=== PATIENT | male | born 1945 | race Caucasian/White ===

== ENCOUNTER → 2017-06-06 06:24 | Outpatient (CLI) | payer MEDICARE, OTHER, SELFPAY ==
[2017-06-06 07:36] LABS: Anion Gap 5 (5-15); BUN 12 mg/dL (7-18); BUN/Creat Ratio 12.3 RATIO (10-20); Calcium,Total 8.7 mg/dL (8.5-10.1); Chloride 106 mmol/L (98-107); Cholesterol 163 mg/dL (200); Creatinine, Serum 0.98 mg/dL (0.70-1.30); EST Glomerular Filtration Rate 81 mL/min (>60); Est Glom Filt Rate - Afr Amer 97 mL/min (>60); Glucose 97 mg/dL (74-106); High Density Lipoprotein 64 mg/dL; PSA,Total - Annual Screen 1.28 ng/mL (0.00-4.00); Potassium 4.6 mmol/L (3.5-5.1); Sodium Level 140 mmol/L (136-145); Triglycerides 80 mg/dL; Very Low Density Lipoprotein 16 mg/dL (5-40)
== END ==
PROVIDERS: Family Provider Family Medicine; PCP Family Medicine; Visit Provider Family Medicine
DX: Z12.5 Encounter for screening for malignant neoplasm of prostate (principal); I10 Essential (primary) hypertension; E78.00 Pure hypercholesterolemia, unspecified
CPT/HCPCS: 36415; 80048; 80061; 84153; G0103

== ENCOUNTER 2017-10-02 14:06 | Day surgery (SDC) | payer MEDICARE, OTHER, SELFPAY ==
[2017-10-02] VITALS (12 sets, daily range): BP systolic 121–168; BP diastolic 72–98; PULSE 73–101; RESP 16–18; TEMP 36.8–37.8; O2SAT 94–97; BMI 36.5
--- NOTE | 2017-10-02 15:06 | EKG12_ITS ---
Test Reason : CP Blood Pressure : / mmHG Vent. Rate : 076 BPM Atrial Rate : 076 BPM P-R Int : 196 ms QRS Dur : 096 ms QT Int : 366 ms P-R-T Axes : 013 -16 -02 degrees QTc Int : 411 ms Normal sinus rhythm Normal ECG Confirmed by SYEDA HALL, MADY ([id number]), subeditor CHATA ROJO ([id number]) on 10/05/2017 1:14:03 PM Referred By: BETSEY Confirmed By:MADY LANDA MD
--- NOTE | 2017-10-02 15:07 | CT_ITS ---
STUDY: CT ABDOMEN AND PELVIS WITH CONTRAST REASON FOR EXAM: Male, 71 years old. Right sided abdominal pain beginning yesterday. Nausea and vomiting. Elevated white blood count. RADIATION DOSAGE (If Supplied By Facility): CTDIvol = ( 18.74 ) mGy, DLP = ( 1362.81 ) mGycm TECHNIQUE: Transaxial images were obtained from the dome of the diaphragm to the symphysis pubis with oral contrast. 100mL ml of Isovue 300 contrast was administered. Sagittal and coronal images were reconstructed. Individualized dose optimization techniques were used for this CT. COMPARISON: None. FINDINGS: The visualized lung bases are unremarkable. The visualized portions of the heart are within normal limits. Normal liver. Normal gallbladder and extrahepatic biliary system. Normal spleen. Normal pancreas. Normal bilateral adrenal glands. The right kidney is of normal size and cortical thickness. There is stranding of the perinephric fat. There are multiple parapelvic and cortical renal cyst. No renal calculi or hydronephrosis is seen. There is no evidence of ureteral dilatation. There is a approximate 1 to 2 mm calcification in the distal ureter best seen on image 110 of series 2. The left kidney is of normal size and cortical thickness. There is stranding of the perinephric fat. There are parapelvic and cortical renal cysts. There is no hydronephrosis. Normal left ureter. Normal visualized stomach. Normal small intestine. Normal colon. The appendix is distended and fluid-filled. There are several appendicoliths. The base of the measures 1.5 cm in diameter. There is diffuse stranding of the periappendiceal fat. The tip of the appendix is normal in diameter. There is no fluid collections or periappendiceal abscess. Normal abdominal aorta. Normal inferior vena cava. Normal retroperitoneum. Normal urinary bladder. The prostate is mildly enlarged. Multiple phleboliths are seen in the pelvis. There is no pelvic lymphadenopathy. No free air or free fluid seen within the peritoneal cavity. Normal abdominal wall. There are diffuse degenerative changes of the visualized lumbar spine. There is minimal anterolisthesis of L5 on S1 without pars defects. CT/Abdomen/Pelvis WITH Contrast IMPRESSION: 1. Appendicitis without obvious complication. 2. Nonobstructing right distal ureteral calculus. 3. Bilateral cortical and parapelvic renal cysts. 4. Enlarged prostate. 5. Degenerative changes of the lumbar spine. Triny Crum M.D., was advised of these findings via direct telephone communication at 1647 hours EST on October 02, 2017. Electronically Signed: Ricky Harden DO at 16:47 EDT Tel [phone], Service support ,
--- NOTE | 2017-10-02 15:09 | ED.VISSUMM ---
- ER Visit Summary Date of Service: 10/02/17 Chief Complaint: Abdominal pain, nausea, vomiting History of Present Illness: The patient is a 71 M reports onset of periumbilical abdominal pain last night. Today it is down the right lower quadrant. He has had subjective fever at home but did not measure his temperature. He vomited twice today. He said very poor appetite. Denies dysuria or diarrhea. He denies any prior abdominal surgeries. History significant for hypertension, high cholesterol, kidney stone, atrial fibrillation/A flutter. Patient is not on anticoagulants. Physical Examination: Vital signs significant for temperature 100.0. Patient is lying in bed no acute distress. He is nontoxic appearing. Head neck examination normal. Heart is regular rate and rhythm. Lung sounds are clear. Abdomen is soft with tenderness in the right lower quadrant. There is no guarding or rebound. He has active bowel sounds throughout. Test Results: CBC reveals a white count 11.5 with 84% neutrophils. Hemoglobin is concentrated at 17. Chemistry studies are normal. EKG is sinus at 76 with no sign of acute ischemia. CT abdomen and pelvis with contrast was obtained. Formal report from radiologist has not yet returned but images do reveal acute appendicitis. Emergency Department Course and Treatment: Patient denied need for pain or nausea medication. Following CT imaging test results were discussed with him. A dose of Zosyn has been ordered. I spoke with Dr. Thomas, on-call for surgery. He will be in to see the patient for surgery. Treatment Plan: [] Disposition: Admit Impression: Acute appendicitis Addendum: After speaking with the radiologist, there is also note of a 1-2 mm kidney stone in the distal right ureter. Patient has been updated with these findings and will be discussed with the surgeon as well. This note was generated with [employer] dictation software. It may contain incorrect words, spelling, and punctuation that were not noted in review of the chart prior to signing ED Disposition - Plan for ED Patient: Chief Complaint: Abd Pain
[2017-10-02] MEDS: 0.9% Normal Saline 1,000 ML 150 ML IV (15:14)
[2017-10-02 15:16] LABS: Absolute Lymphocyte Count 1.05 X10^3/ul (0.83-4.51); Absolute Neutrophil Count 9.7 X10^3/uL (2.0-7.7); Basophil# 0.03 X10^3/uL; Basophil% 0.3 % (0-1); Eosinophil# 0.02 X10^3/uL; Eosinophils% 0.2 % (0-5); Hematocrit 48.3 % (40-54); Lymphocyte # 1.05 X10^3/ul (4.0); Lymphocyte % 9.1 % (19-41); Mean Corp Hgb Conc 35.2 g/gl (32-36); Mean Corpuscular Hgb 32.4 pg (27.0-32.0); Mean Corpuscular Volume 92.2 fL (80-94); Mean Platelet Vol. 9.8 fl (6.2-12.0); Monocyte# 0.67 X10^3/uL; Monocyte% 5.8 % (0-10); Neutrophil # 9.73 X10^3/uL (2.7-7.7); Neutrophil % 84.4 % (47-70); POSITIVE COUNT NO; POSITIVE DIFFERENTIAL NO; POSITIVE MORPHOLOGY NO; Platelet Count 142 K/mm3 (150-450); RBC Distribution Width SD 43.5 fl (35.1-43.9); Red Blood Count 5.24 M/mm3 (4.6-6.2); White Blood Count 11.5 K/mm3 (4.4-11.0)
[2017-10-02 15:27] LABS: Anion Gap 5 (5-15); BUN 13 mg/dL (7-18); BUN/Creat Ratio 10.9 RATIO (10-20); Calcium,Total 9.2 mg/dL (8.5-10.1); Chloride 105 mmol/L (98-107); Creatinine, Serum 1.19 mg/dL (0.70-1.30); EST Glomerular Filtration Rate 64 mL/min (>60); Est Glom Filt Rate - Afr Amer 77 mL/min (>60); Estimated Creatinine Clearance 55.08 ml/min; Glucose 114 mg/dL (74-106); Sodium Level 138 mmol/L (136-145)
--- NOTE | 2017-10-02 17:32 | PCM.CONS.GEN ---
Problem List (1) Acute appendicitis with localized peritonitis Status: Acute Reason for Consult Date of Consultation: 10/02/17 History of Present Illness: The patient is a 71 year old M who presented to the emergency department with right lower quadrant abdominal pain. His pain started yesterday periumbilical in nature now radiating into the right lower quadrant. He has vomited ?2 he has had a subjective fever he has had no dysuria no diarrhea CAT scan was obtained which showed acute appendicitis with a possible small kidney stone in the right ureter as well. He is not complaining of any back pain at this time. Past medical history significant for A. fib and a flutter hypertension hypercholesterolemia and kidney stones in the past he has had no prior abdominal surgeries and he is not on any anticoagulation. Past Medical History Past Medical History (Chronic Problems): Chronic Problems HTN (hypertension) (Chronic) Hyperlipidemia (Chronic) Atrial flutter (Chronic) A-fib (Chronic) Allergies flecainide Adverse Reaction (Verified 10/02/17 14:09) Other IRREG HR ramipril [From Altace] Adverse Reaction (Verified 10/02/17 14:09) Other COUGH SARDIDOL Adverse Reaction (Uncoded 10/02/17 14:09) Other Home Medications: Ambulatory Orders Medication Instructions Recorded Atorvastatin Calcium [Lipitor] 20 mg PO QHS 08/11/14 Diltiazem HCl [Diltiazem 24Hr ER] 180 mg PO DAILY 08/11/14 Aspirin E.C. [Ecotrin] 81 mg PO DAILY 10/02/17 Losartan Potassium [Losartan 50 mg PO DAILY 10/02/17 Potassium] Ondansetron HCl [Zofran] 4 mg PO Q4H PRN PRN 10/02/17 Smoking Status: Never smoker - *Family History Maternal History Items: No pertinent history Review of Systems Constitutional: Reports: Fever - Subjective fevers Eyes: Denies: Blurred vision, Pain, Redness, Vision Change HEENT: Denies: Dysphasia, Ear Pain, Eye Pain, Head Aches, Hearing Changes, Sore Throat Cardiovascular: Denies: Chest Pain, Chest Pressure, Chest Tightness, Palpitations Respiratory: Denies: Cough, Hemoptysis, Shortness of breath at rest, Shortness of breath upon exertion, Wheezing Gastrointestinal: Reports: Abdominal Pain, Nausea, Vomiting Genitourinary: Denies: Dysuria, Frequency, Hematuria, Urgency Musculoskeletal: Denies: Joint Pain Skin: Denies: Lesions, Rash, Wounds Neurological: Denies: Change in Speech, Confusion, Numbness, Tingling, Seizures Psychiatric: Denies: Anxiety, Depression Patient Problems: Active and Suspected Problems Acute appendicitis with localized peritonitis (Acute) - Physical Exam General: Alert, Oriented x3 HEENT: Atraumatic, PERRLA, EOMI, Normocephalic Oral: Moist Mucosa Neck: Supple, No JVD Lungs: Clear to auscultation Cardiovascular: Regular rate, Regular Rhythm, No murmurs Abdomen: Bowel Sounds Present, Soft, Non-Distended, Tender - Patient has tenderness in the right lower quadrant. There is no rebound guarding or peritoneal signs Extremities: No clubbing, No cyanosis, No edema Skin: No rashes, No breakdown Vital Signs Temp Pulse Resp BP Pulse Ox 99.5 F H 87 18 168/98 H 96 10/02/17 16:55 10/02/17 16:55 10/02/17 16:55 10/02/17 16:55 10/02/17 16:55 Oxygen Delivery Method Room Air Weight: 240 lb Body Mass Index (BMI) 36.5 Laboratory Tests Past 24 Hrs 10/02/17 10/02/17 14:31 14:31 WBC 11.5 H RBC 5.24 Hgb 17.0 H Hct 48.3 MCV 92.2 MCH 32.4 H MCHC 35.2 RDW 13.0 RDW Differential 43.5 Plt Count 142 L MPV 9.8 Immature Gran % (Auto) 0.200 Neut % (Auto) 84.4 H Lymph % (Auto) 9.1 L Alexander % (Auto) 5.8 Eos % (Auto) 0.2 Baso % (Auto) 0.3 Absolute Neuts (auto) 9.7 H Absolute Lymphs (auto) 1.05 Total Counted Not Reportable Sodium 138 Potassium 4.0 Chloride 105 Carbon Dioxide 28.0 Anion Gap 5 BUN 13 Creatinine 1.19 Estim Creat Clear Calc 55.08 Est GFR (MDRD) Af Amer 77 Est GFR (MDRD) Non-Af 64 BUN/Creatinine Ratio 10.9 Glucose 114 H Calcium 9.2 Assessment/Plan All Active Problems Acute appendicitis with localized peritonitis (Acute) Plan is perform a laparoscopic appendectomy on the patient risk benefits have been reviewed and the patient agrees to proceed. Patient understands that he could have delayed abscesses he may need to have a drain placed during this procedure he also understands the greatest risk is for bleeding all questions asked were answered and he agrees to proceed.
--- NOTE | 2017-10-02 18:00 | PCM.OPRPT ---
Problem List (1) Acute appendicitis with localized peritonitis Status: Acute Report of Operation Date of Procedure: 10/02/17 Pre-Operative Diagnosis: Acute appendicitis Post-Operative Diagnosis: Same Surgery/Procedure Performed:: Laparoscopic appendectomy Type of Anesthesia:: General Anesthesiologist: Fide Carrera Specimen's removed: Appendix Estimated Blood Loss (mL): < 25 cc Description of Procedure: Patient was brought in the operating room placed in supine position. Under excellent general trach intubation the abdomen was sterilely prepped and draped in usual fashion. Local was injected infraumbilically curvilinear incision was made. Dissection was carried down to the fascia. Fascia was grasped with a Jossue. Varies needle was placed inside the abdomen. The abdomen was insufflated to 15 torr. A 10/12 trocar was placed without difficulty. Patient was placed in the head down and rotated the left. A suprapubic #5 trocar was placed in the left lower quadrant #5 trocar was placed both of these under direct visualization without injury to underlying structures. Inspection of the right lower quadrant revealed acute appendicitis. I dissected the omentum off the appendix dissected the terminal ileum off the appendix took the mesoappendix down with the Enseal device and then transected the base of the appendix with a 45 linear cutter. I had excellent hemostasis. The specimen and specimen bag and delivered through the umbilical port. I irrigated the right lower quadrant and the pelvis there was a small amount of purulent fluid but there was no pus. A good hemostasis on my suture line remove the trochars under direct visualization good hemostasis was noted I closed the fascia the umbilical port with a figure 8 stitch of 0 Vicryl. Skin incisions were closed with a particular stitches of 4-0 Monocryl. Steri-Strips are applied sterile dressings were applied the patient tolerated the procedure well. - Admit VTE Documentation VTE Present on Admission: No VTE Mechan Device Prophylaxis: SCD's VTE Pharm Prophylaxis ordered?: No Reason prophylaxis not ordered:: Treatment Not Indicated
--- NOTE | 2017-10-02 18:30 | APP_PTH ---
PATIENT: LOLITA REED LOC: [facility] [place] U#:[id number] AGE/SX: 71/M ROOM: RE10/02/[address]: Dr. Eddie Thomas MD : 1945 BED: DIS: 10/03/2017 SPEC #: [id number] RECD: 10/03/17 08:25 STATUS: YIMI PAGE #: [id number] EUGENE: 10/02/17 18:[address]: Eddie Thomas DEPT: SURGICAL PATHOLOGY RECD BY: Juan German ENTERED: 10/03/17 09:10 SP TYPE: APPENDIX OTHR DR: Dr. William Odonnell MD Tissues: Appendix, NOS Procedures: Surgery Specimen Level III HEADER OPERATION: Laparoscopic, appendectomy PRE-OP DIAGNOSIS: Acute appendicitis TISSUE SUBMITTED: Appendix MICROSCOPIC DIAGNOSIS Appendix: Acute appendicitis and periappendicitis. SJ:so 10/04/17 MICROSCOPIC DESCRIPTION Slides are reviewed. GROSS DESCRIPTION Received is one container labeled with the patient's name and designated appendix. The specimen consists of an appendix measuring 9 cm in length and up to 1.2 cm in average diameter. The attached periappendiceal adipose tissue measures up to 3.5 cm in width. The serosa is focally covered with chaudhari, purulent exudate. No obvious perforation is identified. The lumen contains blood-tinged fecal material. No fecalith is identified. Digital Production Artist sections are submitted in one cassette. / SJ:so 10/03/17 TC:2 [facility]: [id number]
[2017-10-02] MEDS: Bupivacaine Mpf 0.5% 30 ML VIAL (18:41)
[2017-10-02] MEDS: Lactated Ringers 1,000 ML 65 ML IV (20:32)
[2017-10-03] MEDS: Piperacil/Tazobactam 3.375 GM/50 ML ML IV (00:13)
[2017-10-03 06:00] VITALS: BP 130/86; PULSE 73; RESP 16; TEMP 36.8; O2SAT 92
[2017-10-03 06:26] LABS: Absolute Lymphocyte Count 0.55 X10^3/ul (0.83-4.51); Absolute Neutrophil Count 10.7 X10^3/uL (2.0-7.7); Hemoglobin 14.5 g/dl (13.0-16.5); Lymphocyte # 0.55 X10^3/ul (4.0); Lymphocyte % 4.7 % (19-41); Mean Corp Hgb Conc 34.5 g/gl (32-36); Mean Corpuscular Hgb 31.8 pg (27.0-32.0); Mean Corpuscular Volume 92.1 fL (80-94); Mean Platelet Vol. 9.7 fl (6.2-12.0); Monocyte# 0.39 X10^3/uL; Monocyte% 3.3 % (0-10); Neutrophil # 10.74 X10^3/uL (2.7-7.7); Neutrophil % 91.9 % (47-70); Platelet Count 118 K/mm3 (150-450); RBC Distribution Width CV 12.8 % (11.6-14.6); RBC Distribution Width SD 42.6 fl (35.1-43.9); Red Blood Count 4.56 M/mm3 (4.6-6.2); White Blood Count 11.7 K/mm3 (4.4-11.0)
[2017-10-03 06:49] LABS: Differential Indicated SCAN CRITERIA MET; POSITIVE COUNT NO; POSITIVE DIFFERENTIAL YES; POSITIVE MORPHOLOGY NO
[2017-10-03 07:02] LABS: Differential Comment SCANNED
--- NOTE | 2017-10-03 08:03 | DCINST_ITS ---
Discharge Diet: Light diet - advance as tolerated Discharge Activity: May Not Drive - for 3 days or while taking narcotic pain meds. May shower in (days): 1 Call your doctor if your incision/area has: Continuous Slow Oozing, Sudden Increased Bleeding, Increased Pain/ Swelling, Increased Redness, Foul Smelling Discharge Call your doctor if you observe: Fever of 101 or Higher Suture Line Care: Avoid Pulling/Pushing, Avoid Pinching/Bending Cleanse incision/area with: Soap & Water Additional Dressing/Incision Instructions:: Keep dressing clean and dry. Change or remove dressing in 2 days. Leave steri strips for 1 week. May protect with a gauze bandaid. Medications to take at Discharge Atorvastatin Calcium [Lipitor] 20 mg PO QHS 08/11/14 Diltiazem HCl [Diltiazem 24Hr ER] 180 mg PO DAILY 08/11/14 Aspirin E.C. [Ecotrin] 81 mg PO DAILY 10/02/17 Losartan Potassium 50 mg PO DAILY 10/02/17 Ondansetron HCl [Zofran] 4 mg PO Q4H PRN PRN 10/02/17 Allergies/Adverse Reactions: Allergies flecainide Adverse Reaction (Verified 10/02/17 14:09) Other IRREG HR ramipril [From Altace] Adverse Reaction (Verified 10/02/17 14:09) Other COUGH SARDIDOL Adverse Reaction (Uncoded 10/02/17 14:09) Other Primary Care Physician: William Odonnell MD [Primary Care Provider] - Test Results: Test results from this visit will be discussed in further detail at your follow- up appointment, if applicable. Please Follow Up With: Joleen Monahan PA-C - [phone] When: 14 days Proposed Discharge Date: 10/03/17
--- NOTE | 2017-10-03 08:04 | PCM.PN.SRG ---
Patient Problems: Active and Suspected Problems Acute appendicitis with localized peritonitis (Acute) Subjective: Patient evaluated resting comfortably in bed. He denies nausea, vomiting, fever, abdominal pain. Tolerating clear liquids well. Urinating well. - Physical Exam General: Alert, Oriented x3, Cooperative Abdomen: Bowel Sounds Present, Soft, Non Tender, - - Incisions intact. Umbilical incision with minimal oozing. Op-site and steri-strips were completely changed. Oozing had completely stopped. No erythema or infection noted. Vital Signs Temp Pulse Resp BP Pulse Ox 98.2 F 73 16 130/86 H 92 10/03/17 06:00 10/03/17 06:00 10/03/17 06:00 10/03/17 06:00 10/03/17 06:00 Oxygen Flow Rate (L/min) 3 Oxygen Delivery Method Room Air Weight: 240 lb Body Mass Index (BMI) 36.5 Intake and Output for Last 24 Hours 10/01/17 10/02/17 10/03/17 23:59 23:59 23:59 Intake Total 912 / 912 Balance 912 / 912 Laboratory Tests Past 24 Hrs 10/03/17 05:44 WBC 11.7 H RBC 4.56 L Hgb 14.5 Hct 42.0 MCV 92.1 MCH 31.8 MCHC 34.5 RDW 12.8 RDW Differential 42.6 Plt Count 118 L MPV 9.7 Immature Gran % (Auto) 0.100 Neut % (Auto) 91.9 H Lymph % (Auto) 4.7 L Davis % (Auto) 3.3 Eos % (Auto) 0.0 Baso % (Auto) 0.0 Absolute Neuts (auto) 10.7 H Absolute Lymphs (auto) 0.55 L Total Counted Not Reportable Differential Comment SCANNED Medical Necessity - Tobacco Use Smoking Status: Never smoker Assessment/Plan All Active Problems Acute appendicitis with localized peritonitis (Acute) I am following this patient in conjunction with Dr. Thomas S/p Laparoscopic appendectomy Ready for discharge Code Visit Inpatient E&M: 04001 Subs Hosp L1 - Post-op charge
--- NOTE | 2017-10-03 08:07 | PN.SURG_ITS ---
Patient Problems: Active and Suspected Problems Acute appendicitis with localized peritonitis (Acute) Subjective: Patient evaluated resting comfortably in bed. He denies nausea, vomiting, fever , abdominal pain. Tolerating clear liquids well. Urinating well. - Physical Exam General: Alert, Oriented x3, Cooperative Abdomen: Bowel Sounds Present, Soft, Non Tender, - - Incisions intact. Umbilical incision with minimal oozing. Op-site and steri-strips were completely changed. Oozing had completely stopped. No erythema or infection noted. Vital Signs Temp Pulse Resp BP Pulse Ox 98.2 F 73 16 130/86 H 92 10/03/17 06:00 10/03/17 06:00 10/03/17 06:00 10/03/17 06:00 10/03/17 06:00 Oxygen Flow Rate (L/min) 3 Oxygen Delivery Method Room Air Weight: 240 lb Body Mass Index (BMI) 36.5 Intake and Output for Last 24 Hours 10/01/17 10/02/17 10/03/17 23:59 23:59 23:59 Intake Total 912 / 912 Balance 912 / 912 Laboratory Tests Past 24 Hrs 10/03/17 05:44 WBC 11.7 H RBC 4.56 L Hgb 14.5 Hct 42.0 MCV 92.1 MCH 31.8 MCHC 34.5 RDW 12.8 RDW Differential 42.6 Plt Count 118 L MPV 9.7 Immature Gran % (Auto) 0.100 Neut % (Auto) 91.9 H Lymph % (Auto) 4.7 L Tol[place] % (Auto) 3.3 Eos % (Auto) 0.0 Baso % (Auto) 0.0 Absolute Neuts (auto) 10.7 H Absolute Lymphs (auto) 0.55 L Total Counted Not Reportable Differential Comment SCANNED Medical Necessity - Tobacco Use Smoking Status: Never smoker Assessment/Plan All Active Problems Acute appendicitis with localized peritonitis (Acute) I am following this patient in conjunction with Dr. Thomas S/p Laparoscopic appendectomy Ready for discharge Code Visit Inpatient E&M: 60497 Subs Hosp L1 - Post-op charge
[2017-10-03 08:34] VITALS: BP 150/81; PULSE 80; RESP 18; TEMP 36.6; O2SAT 97
== END 2017-10-03 08:30 | disposition home or self-care (01) ==
LOC: ED 15:42 → SDC 16:47 → AC 16:49 → SDC 19:48 → MS2 10-03 04:20
PROVIDERS: Emergency Provider Emergency Medicine; Family Provider Family Medicine; PCP Family Medicine; Visit Provider Surgery
PROC: 0DTJ4ZZ Resection of Appendix, Percutaneous Endoscopic Approach (ICD-10-PCS; CPT 44970; principal; 2017-10-02 18:30)
DX: K35.3 Acute appendicitis with localized peritonitis (principal); I10 Essential (primary) hypertension; E78.00 Pure hypercholesterolemia, unspecified; I48.91 Unspecified atrial fibrillation; I48.92 Unspecified atrial flutter; Z87.442 Personal history of urinary calculi; Z79.82 Long term (current) use of aspirin; Z79.899 Other long term (current) drug therapy
CPT/HCPCS: 44970; 36415; 74177; 80048; 85025; 88304; 93005; 99283; J7030; J7120; Q9967; A4216; C1760; J2405

== ENCOUNTER → 2018-05-09 06:36 | Outpatient (CLI) | payer MEDICARE, OTHER, SELFPAY ==
[2017-10-02 19:58] VITALS: BMI 36.5
--- NOTE | 2018-05-09 06:48 | RAD_ITS ---
STUDY: X-RAY - RIGHT KNEE REASON FOR EXAM: Male, 72 years old. Chronic pain. TECHNIQUE: 4 view(s) of the knee, two of which are labeled as upright. COMPARISON: 4 views of the right knee October 13, 2013. FINDINGS: There is stable periarticular spurring of the femoral condyles. There is stable periarticular spurring of the lateral tibial plateau and spurring at the tibial insertion of the anterior cruciate ligament. There is stable slight angled depression and minor subarticular sclerosis of the medial tibial plateau. Normal visualized proximal fibula. There is stable periventricular spurring at the base of the patella and, to a minimal degree, at the apex. There is no demonstrated destructive osseous lesion or acute fracture. There is stable degenerative arthrosis of the medial femorotibial compartment with severe joint space narrowing. Normal lateral femorotibial compartment. There is stable mild degenerative arthrosis of the patellofemoral articulation. Normal proximal tibiofibular articulation. There is no significant joint effusion. There are stable faint atherosclerotic calcifications. RAD/Knee 4 or More Views IMPRESSION: Stable degenerative arthrosis of the right knee, as described Electronically Signed: Delon Zamora, at 23:01 EST , Service support ,
--- NOTE | 2018-05-09 06:48 | RAD_ITS ---
STUDY: X-RAY - LEFT KNEE REASON FOR EXAM: Male, 72 years old. Chronic pain. TECHNIQUE: 4 view(s) of the knee. COMPARISON: 4 views of the left knee October 13, 2013. FINDINGS: There is stable periarticular spurring of the femoral condyles. There is stable periarticular spurring of the tibial plateaus, and minor degenerative subarticular sclerosis of the medial tibial plateau. Slight lobulation of the medial tibial plateau mirrors smooth mild lobulation of the medial femoral condyle. Normal visualized proximal fibula. No stable mild periarticular spurring of the base of the patella. There is no demonstrated destructive osseous lesion or acute fracture. There is stable degenerative arthrosis of the medial femorotibial compartment with severe joint space narrowing. There is stable mild degenerative arthrosis of the lateral femorotibial compartment without significant narrowing. There is stable mild degenerative arthrosis of the patellofemoral articulation. Normal proximal tibiofibular articulation. There is a soft tissue prominence in the suprapatellar region suggesting a small volume joint effusion. The soft tissue structures are unremarkable. RAD/Knee 4 or More Views IMPRESSION: Stable degenerative arthrosis of the left knee, with narrowing most prominent in the medial femorotibial compartment. Electronically Signed: Delon Zamora, at 22:58 EST , Service support ,
== END ==
PROVIDERS: Family Provider Family Medicine; PCP Family Medicine; Referring Provider Family Medicine; Visit Provider Family Medicine
DX: M17.0 Bilateral primary osteoarthritis of knee (principal)
CPT/HCPCS: 73564

== ENCOUNTER → 2018-06-10 06:14 | Outpatient (CLI) | payer MEDICARE, OTHER, SELFPAY ==
[2017-10-02 19:58] VITALS: BMI 36.5
[2018-06-10 08:27] LABS: Anion Gap 5 (5-15); BUN 17 mg/dL (7-18); BUN/Creat Ratio 15.5 RATIO (10-20); Calcium,Total 8.7 mg/dL (8.5-10.1); Chloride 108 mmol/L (98-107); Cholesterol 166 mg/dL (200); EST Glomerular Filtration Rate 70 mL/min (>60); Est Glom Filt Rate - Afr Amer 85 mL/min (>60); Glucose 85 mg/dL (74-106); High Density Lipoprotein 64 mg/dL; PSA,Total - Annual Screen 1.14 ng/mL (0.00-4.00); Potassium 4.9 mmol/L (3.5-5.1); Sodium Level 140 mmol/L (136-145); Triglycerides 97 mg/dL; Very Low Density Lipoprotein 19 mg/dL (5-40)
== END ==
PROVIDERS: Family Provider Family Medicine; PCP Family Medicine; Referring Provider Family Medicine; Visit Provider Family Medicine
DX: Z12.5 Encounter for screening for malignant neoplasm of prostate (principal); E78.00 Pure hypercholesterolemia, unspecified; I10 Essential (primary) hypertension
CPT/HCPCS: 36415; 80048; 80061; 84153; G0103

== ENCOUNTER → 2018-08-30 09:39 | Outpatient (CLI) | payer MEDICARE, OTHER, SELFPAY ==
[2018-08-30 08:23] VITALS: BMI 36.5
--- NOTE | 2018-08-30 09:41 | RAD_ITS ---
STUDY: X-RAY - LEFT KNEE REASON FOR EXAM: Swelling and difficulty ambulating, fall 1 month ago. TECHNIQUE: 4 view(s) of the knee. COMPARISON: Radiographs 05/09/2018. FINDINGS: Normal visualized distal femur. Normal visualized proximal tibia and fibula. Normal proximal tibiofibular articulation. There is severe joint space loss of the medial femorotibial compartment as on the prior study. Normal lateral femorotibial compartment. There are marginal osteophytes and joint space narrowing of the patellofemoral articulation. There is soft tissue swelling at the anterior aspect of the knee. There is vascular calcification. There is a small joint effusion. There is artifact at the anterior aspect of the distal femoral diaphysis on the lateral view. RAD/Knee 4 or More Views IMPRESSION: Arthrosis of the medial femorotibial and patellofemoral compartments. Small joint effusion. Electronically Signed: Georges Lara MD at 14:00 EDT Tel , Service support ,
== END ==
PROVIDERS: Family Provider Family Medicine; PCP Family Medicine; Referring Provider Orthopaedic Surgery; Visit Provider Orthopaedic Surgery
DX: M25.362 Other instability, left knee (principal)
CPT/HCPCS: 73564

== ENCOUNTER → 2018-08-30 13:21 | Outpatient (CLI) | payer MEDICARE, OTHER, SELFPAY ==
[2018-08-30 08:23] VITALS: BMI 36.5
--- NOTE | 2018-08-30 14:01 | VDLE_ITS ---
Reason For Study: LLE pain RIGHT LEFT CFV is compressible, spontaneous, phasic, GSV is normal. competent and demonstrates normal CFV is compressible, spontaneous, phasic, augmentation. competent, and demonstrates normal Procedure augmentation. Exam performed in department. FV is compressible, spontaneous, phasic, The exam was diagnostic. competent and demonstrates normal A preliminary report was called and/or faxed augmentation. to Dr. Freitas @ 2:20 pm @ [phone]. POP V is compressible, spontaneous, phasic, competent and demonstrates normal augmentation. T/P Trunk is compressible. PTV is compressible. LT PerV is compressible. Interpretation Summary Deep veins of the left lower extremity are patent and compressible segmentally. There is no evidence of left lower extremity deep vein thrombosis. Valvular competence appears intact within the proximal deep venous system on the left . The left greater saphenous vein appears patent and compressible segmentally. Ordering Physician: Sobia Freitas Referring Physician: William Odonnell Performed By: Stacey Hodge, MARIAA, RVT
== END ==
PROVIDERS: Family Provider Family Medicine; PCP Family Medicine; Referring Provider Orthopaedic Surgery; Visit Provider Orthopaedic Surgery
DX: M79.662 Pain in left lower leg (principal); M25.362 Other instability, left knee
CPT/HCPCS: 73564; 93971

== ENCOUNTER → 2018-09-05 14:19 | Outpatient (CLI) | payer MEDICARE, OTHER, SELFPAY ==
[2018-09-05 08:00] VITALS: BMI 36.5
[2018-09-05 14:24] LABS: Pathologist Comment May follow
[2018-09-05 14:46] LABS: RBC /Synovial Fluid 0.005 10^6/uL (0); Synovial Fld Mononuclear WBC % 87.7 %; Synovial Fld Polynuclear WBC # 0.029 10^3/ul; Synovial Fld Polynuclear WBC % 12.3 %
[2018-09-05 14:48] LABS: AUTO B FLUID DILUENT BKGD CT WBC <0.1 RBC <0.01 (W<.1,R<.01); Source- Body Fluid SYNOVIAL; Viscosity / Synovial Fluid Sl. Viscous (HIGH)
[2018-09-05 14:49] LABS: Appearance /Synovial Fluid Sl Cl (CLEAR); Color / Synovial Fluid Pink (Pale Yellow)
[2018-09-05 15:19] LABS: Glucose, Body Fluid 6 mg/dL (40-70)
[2018-09-05 15:30] LABS: Lymph 21 %; Monocyte /Synovial Fluid 27 %; Neutrophil 2 % (0-25)
[2018-09-05 16:28] LABS: Body Fluid QC Type(s) BF2Q,BF3Q
[2018-09-09 09:48] LABS: Pathologist Review Reviewed
== END ==
PROVIDERS: Family Provider Family Medicine; PCP Family Medicine; Visit Provider Orthopaedic Surgery
DX: M17.0 Bilateral primary osteoarthritis of knee (principal)
CPT/HCPCS: 82945; 87070; 87075; 87205; 89050; 89051; 89060

== ENCOUNTER → 2018-09-09 10:31 | Outpatient (CLI) | payer MEDICARE, OTHER, SELFPAY ==
[2018-09-05 08:00] VITALS: BMI 36.5
[2018-09-09 10:37] LABS: Lyme Ab Screen Interpretation REF LAB
[2018-09-09 12:11] LABS: Erythrocyte Sedimentation Rate 8 mm/hr (0-20)
[2018-09-09 12:12] LABS: Absolute Lymphocyte Count 1.64 X10^3/ul (0.83-4.51); Absolute Neutrophil Count 6.3 X10^3/uL (2.0-7.7); Basophil# 0.01 X10^3/uL; Basophil% 0.1 % (0-1); Eosinophil# 0.01 X10^3/uL; Eosinophils% 0.1 % (0-5); Hematocrit 44.9 % (40-54); Hemoglobin 15.9 g/dl (13.0-16.5); Lymphocyte # 1.64 X10^3/ul (4.0); Mean Corp Hgb Conc 35.4 g/gl (32-36); Mean Corpuscular Hgb 32.4 pg (27.0-32.0); Mean Corpuscular Volume 91.6 fL (80-94); Monocyte# 1.09 X10^3/uL; Neutrophil % 69.1 % (47-70); Platelet Count 199 K/mm3 (150-450); RBC Distribution Width CV 13.1 % (11.6-14.6); RBC Distribution Width SD 43.8 fl (35.1-43.9); White Blood Count 9.1 K/mm3 (4.4-11.0)
[2018-09-09 12:17] LABS: POSITIVE COUNT NO; POSITIVE DIFFERENTIAL NO; POSITIVE MORPHOLOGY NO
[2018-09-09 12:21] LABS: CRP < 2.90 mg/L (0.0-3.0); Rheumatoid Factor < 10.0 IU/mL (<15)
[2018-09-10 16:19] LABS: ANTINUCLEAR ANTIBODIES DIRECT Negative (Negative)
[2018-09-15 16:20] LABS: CCP IgG Antibodies 3 units (0-19); HLA B27 Negative (.); Lyme Scn Total Ab w/Rflx <0.91 ISR (0.00-0.90)
== END ==
PROVIDERS: Family Provider Family Medicine; PCP Family Medicine; Referring Provider Orthopaedic Surgery; Visit Provider Orthopaedic Surgery
DX: R22.42 Localized swelling, mass and lump, left lower limb (principal)
CPT/HCPCS: 36415; 81374; 85025; 85652; 86038; 86140; 86200; 86431; 86618

== ENCOUNTER → 2019-05-13 09:45 | Outpatient (CLI) | payer MEDICARE, OTHER, SELFPAY ==
[2019-01-07 08:16] VITALS: BMI 36.5
[2019-05-13 12:10] LABS: Absolute Lymphocyte Count 1.79 X10^3/uL (0.83-4.51); Basophil# 0.07 X10^3/uL; Basophil% 1.3 % (0-1); Eosinophils% 1.9 % (0-5); Hematocrit 45.5 % (40-54); Hemoglobin 16.1 g/dL (13.0-16.5); Lymphocyte # 1.79 X10^3/ul (4.0); Lymphocyte % 34.2 % (19-41); Mean Corp Hgb Conc 35.4 g/dL (32-36); Mean Corpuscular Hgb 31.9 pg (27.0-32.0); Mean Corpuscular Volume 90.1 fL (80-94); Monocyte# 0.31 X10^3/uL; Monocyte% 5.9 % (0-10); NRBC Flagged by Analyzer 0 % (0-5); Neutrophil # 2.96 X10^3/uL (2.7-7.7); Neutrophil % 56.5 % (47-70); Platelet Count 191 K/mm3 (150-450); RBC Distribution Width CV 13.1 % (11.6-14.6); RBC Distribution Width SD 42.5 fl (35.1-43.9); Red Blood Count 5.05 M/mm3 (4.6-6.2); White Blood Count 5.2 K/mm3 (4.4-11.0)
[2019-05-13 12:35] LABS: Microalbumin,Random Urine 12.4 mg/L (NO RANGE EST.); Microalbumin:Creatinine Ratio 4.2 mg/g CRE (<30 mg/g CRE)
[2019-05-13 13:12] LABS: ALB/GLOB Ratio 0.9 RATIO (0.9-2.4); AST(SGOT) 19 U/L (15-37); Alanine Aminotransfer ALT/SGPT 31 U/L (16-61); Albumin, Serum 3.6 g/dL (3.2-5.0); Alkaline Phosphatase 93 U/L (45-117); Anion Gap 5 (5-15); BUN 17 mg/dL (7-18); BUN/Creat Ratio 15.6 RATIO (10-20); Calcium,Total 8.9 mg/dL (8.5-10.1); Chloride 110 mmol/L (98-107); Cholesterol 143 mg/dL (200); Creatinine, Serum 1.09 mg/dL (0.70-1.30); EST Glomerular Filtration Rate 70 mL/min (>60); Est Glom Filt Rate - Afr Amer 85 mL/min (>60); Globulin 3.9 g/dL (2.2-4.2); Glucose 88 mg/dL (74-106); High Density Lipoprotein 52 mg/dL; Potassium 4.1 mmol/L (3.5-5.1); Protein, Total 7.5 g/dL (6.4-8.2); Sodium Level 139 mmol/L (136-145); Thyroid Stim Hormone (TSH) 1.33 uIU/mL (0.358-3.74); Triglycerides 110 mg/dL; Very Low Density Lipoprotein 22 mg/dL (5-40)
== END ==
PROVIDERS: PCP Family Medicine; Referring Provider Family Medicine; Visit Provider Family Medicine
DX: Z00.00 Encounter for general adult medical examination without abnormal findings (principal); I10 Essential (primary) hypertension; M17.10 Unilateral primary osteoarthritis, unspecified knee
CPT/HCPCS: 36415; 80053; 80061; 82043; 82570; 84443; 85025

== ENCOUNTER → 2019-12-09 08:47 | Outpatient (CLI) | payer MEDICARE, OTHER, SELFPAY ==
[2019-01-07 08:16] VITALS: BMI 36.5
[2019-12-10 06:58] LABS: SARS-COV-2 TOTAL ABS Nonreactive (Nonreactive)
== END ==
PROVIDERS: PCP Family Medicine; Referring Provider Family Medicine; Visit Provider Family Medicine
DX: R68.89 Other general symptoms and signs (principal)
CPT/HCPCS: 36415; 86769

== ENCOUNTER → 2020-02-16 21:59 | Outpatient (CLI) | payer MEDICARE, OTHER, SELFPAY ==
[2020-01-27 11:09] VITALS: BMI 37.5
== END ==
PROVIDERS: PCP Family Medicine; Referring Provider Internal Medicine Critical Care Medicine; Visit Provider Internal Medicine Critical Care Medicine
DX: G47.33 Obstructive sleep apnea (adult) (pediatric) (principal)
CPT/HCPCS: 95811

== ENCOUNTER → 2020-05-12 06:18 | Outpatient (CLI) | payer MEDICARE, OTHER, SELFPAY ==
[2020-03-29 10:08] VITALS: BMI 38.2
[2020-05-12 09:31] LABS: Hepatitis C Antibody Non-Reactive (Nonreactive)
== END ==
PROVIDERS: PCP Family Medicine; Referring Provider Family Medicine; Visit Provider Family Medicine
DX: Z11.59 Encounter for screening for other viral diseases (principal)
CPT/HCPCS: 36415; 86803

== ENCOUNTER 2020-07-12 10:30 | Outpatient (RCR) | payer MEDICARE, OTHER, SELFPAY ==
[2020-03-29 10:08] VITALS: BMI 38.2
--- NOTE | 2020-07-08 10:36 | HP.PTEVAL ---
Patient's Visit Information LOLITA REED is a 74 year old M referred to Physical Therapy by ABDULLAHI Blackmon with a diagnosis of Right Buttock Spasm. Date of Evaluation: 07/08/20 Physical Therapist: Ruthy Bermeo DPT - Visit Plan Frequency: 2x /Week Duration: 3 Weeks Plan: Massage Gun to gluts, core and posterior chair strength. HEP Given IE: Clams with GTB, Figure 4 stretching, Bridge - Subjective Last Sunday and it peaked on Sunday and is starting to wean down. Its 60% better. Reports that he has pain in the right buttock- No radiating pain. No back problems prior to this- strained his right calf- Bilateral TKR Dr. Cuevas. Describes the pain as a muscle spasm. Eases: laying or sitting. Worst: 09/18 Agg: walking, movement in the right leg. No N/T in the toes. Has not worked out since sunday. Working Out in [employer]: bike, crunches, arm and leg machines. Swim Sunday/Sunday/Sunday. Sleep: not disturbed- all over the place. First few steps are better then it wears on him. PMHx: a-fib 5x, cardio versions x 3, ablasion 1x and he is on Tecosin- last time he was in a-fib was Apr. Meds: Tecosin, Blood pressure, cholesterol, Eloquis - Objective Posture: FH, RS- can correct with tactile and verbal cues- can correct but is unable to maintain. Gait: decreased stance on the right LE with poor heel/toe pattern- decreased radha. HR/TR: able with UE A. SLS: weight shift but unable to SLS without UE A. Sensation: WFL to gross touch in LE. Reflex: Patellar bilateral WFL. ROM: Lumbar: Flexion: hands to mid braun, Extn: neutral, SB: decreased by 50% to the right with discomfort, Rotation: WFL. Hip/Knee/Ankle: WFL. Strength: Core: fair minus, Hip: 4/5 throughout, Knee: 5/5, Ankle: 5/5. Flex: HS: severe, Gastroc: severe. Special Test: Slump: positive, SLR: positive, Dural Signs: positive. Palpation: tender along piriformis on the right. - Goals Goal 1:: Patient will be I with HEP and progression Goal Time Frame: 4-6 Weeks Goal 2:: Patient will ambulate >300 feet with a normalized gait pattern Goal Time Frame: 4-6 Weeks Goal 3:: Patient will report no pain for 1 week Goal Time Frame: 4-6 Weeks Goal 4:: Patient will maintain proper posture t/o tx session to demo increased core s/s. Goal Time Frame: 4-6 Weeks - Rehabilitation Potential Physical Therapy Diagnosis: Patient presents with hypomobility- he has decreased LE strength, core strength/stabilization, flexibility and muscular endurance leading to poor posture and increased pain with ADL's. - Anticipated Interventions Patient/Client Instruction: Educate patient on: Benefits of Fitness Program Therapeutic Exercise to Include: Power training, Endurance training, Balance training, Coordination, Agility training, Body mechanics, Postural training, Flexibilty training, Gait and locomotor training, Neuromotor development, Dynamic Lumbar Stabilization, Scapular Strength/Stabilization For the Purpose of:: To improve muscle performance and motor function Cryotherapy (ice pack, ice massage): Yes Thermo therapy (hot pack): Yes Ultrasound (thermal/non thermal): Yes For the Purpose of:: To decrease pain Thank you for the opportunity to evaluate your patient. For Medicare and Medicare HMO plans, please review the plan of care and approve it. It will need to be FAXED BACK to us at [phone] for Medicare purposes. For Medicare only, by signing this I certify the plan of care. Please let me know if there are questions or concerns regarding this plan of care. Physician Signature: Date:
== END 2020-07-12 19:00 | disposition home or self-care (01) ==
LOC: PT 10:30
PROVIDERS: PCP Family Medicine; Referring Provider Nurse Practitioner Family; Visit Provider Nurse Practitioner Family
DX: M62.838 Other muscle spasm (principal)
CPT/HCPCS: 97110; 97162

== ENCOUNTER → 2020-10-18 09:00 | Outpatient (CLI) | payer MEDICARE, OTHER, SELFPAY ==
[2020-09-28 06:10] VITALS: BMI 36.5
== END ==
PROVIDERS: PCP Family Medicine; Referring Provider Internal Medicine Critical Care Medicine; Visit Provider Internal Medicine Critical Care Medicine
DX: G47.33 Obstructive sleep apnea (adult) (pediatric) (principal)
CPT/HCPCS: 98960; G0463

== ENCOUNTER 2020-12-09 07:00 | Outpatient (RCR) | payer MEDICARE, OTHER, SELFPAY ==
[2020-09-28 06:10] VITALS: BMI 36.5
--- NOTE | 2020-10-28 07:07 | HP.PTEVAL_ITS ---
Patient's Visit Information LOLITA REED is a 74 year old M referred to Physical Therapy by Dr. Rad Cuevas MD with a diagnosis of L TKA. Date of Evaluation: 10/27/20 Physical Therapist: Cody Jasso DPT - Visit Plan Frequency: 3x /Week Duration: 4 Weeks Plan: Start with ROM progression. Focus on flexion/ext end range stretching. Add in gait tolerance and edema control. Progress functional mobility as tolerated. May use IFC/ice for pain control. - Subjective Pt. is here today for his initial evaluation with diagnosis of L TKA on 10/26/20. Pt. reports overall doing well. He arrives with FWW with good tolerance. He has his compression stockings and compression devices. Pt. reports having no pain currently. Pt. is currently ~27 hours out of surgery. Pt. reports no OVERTON, no blurred vision, no calf pain, no fever. Pt. has no signs of infection. He reports overall doing well and is very pleased with his current progress from his TKA. Pt. He has been icing frequently and elevating. He has tried his exercises with good success as well. He enjoys walking, swimming and boating. He is hopeful to get back to all of these activities without limitations. He is planning to have is other knee replaced later this year. - Pain L knee Pain Intensity (Out of 10): 0 Pain Intensity Range: 0 - Objective POSTURE: Pt. has overall good posture in stance. Pt. lacks TKE in stance and increased wt. shift to R side. PALPATION: Pt. has mild tenderness at medial joint line and at distal HS attachment. Pt. has healing incision, no signs of infection. Negative Homans sign. NEURO: Pt. has normal sensation and normal DTR of Achilles tendon. ROM: R knee 0-3-129deg. L knee 0-5-84deg. I did not stress over pressure of flexion due to having surgery yesterday. MMT: RLE 5/5 throughout. L knee: ext 3+/5, flexion 3+/5; hip- flexion 3+/5, abd 3+/5, ext 3+/5. GAIT: Pt. ambulates with FWW with good step length, he lacks TKE on his LLE, but has good knee flexion during swing phase. TU.9 sec. WOMAC: - Balance/Special Test Scores TUG Test Time Seconds: 18.9 - Goals Goal 1:: LTG: Pt. to be I with HEP. Goal Time Frame: 4-6 Weeks Goal 2:: STG: Pt. to have increased L knee ROM to 0-0-110deg. Goal Time Frame: 2 Weeks Goal 3:: LTG: Pt. to have increased ROM of L knee to 0-0-120deg. Goal Time Frame: 4-6 Weeks Goal 4:: LTG: Pt. to have increased LLE strength increased to at least 5-/5 throughout. Goal Time Frame: 4-6 Weeks Goal 5:: LTG: Pt. to ambulate without AD for unlimited distances with out increase in symptoms. Goal Time Frame: 4-6 Weeks Goal 6:: LTG: Pt. to be able to negotiate steps with 1 HR with reciprocal pattern. Goal Time Frame: 4-6 Weeks - Rehabilitation Potential Physical Therapy Diagnosis: Pt. has signs and symptoms consistent with L TKA DOS: 10/26/20. Pt. has subsequent hypomobility, increased swelling, weakness and difficulty walking. Pt. would benefit from PT to work on the above limitations progressing back to all recreational activities without limitations. Rehabilitation Potential: Excellent - Anticipated Interventions Patient/Client Instruction: Educate patient on: Condition, Plan of Care, Risk Factors, Benefits of Fitness Program For the Purpose of:: To foster healthy habits, To improve decision making, To facilitate caregiver knowledge, To improve self management, To prevent re- injury, To improve ability to perform tasks related to life management Therapeutic Exercise to Include: Strength training, Power training, Balance training, Postural training, Flexibilty training, Gait and locomotor training, Passive ROM, Active ROM For the Purpose of:: To decrease pain, To decrease swelling/inflammation, To increase ROM, To improve nutrient delivery to tissue, To increase oxygenation perfusion, To improve muscle performance and motor function, To improve health of tissue, To decrease soft tissue restriction, To increase flexibility/ROM, To improve endurance, To improve balance, To improve safety with gait, To assume or resume ADL's Manual Therapy Techniques to Include: Mobilization, Passive ROM, Soft tissue mobilization For the Purpose of:: To decrease pain, To decrease swelling/inflammation, To increase ROM, To improve nutrient delivery to tissue IF ES: Yes Cryotherapy (ice pack, ice massage): Yes Vasopneumatic device: Yes For the Purpose of:: To decrease pain, To decrease swelling/inflammation, To increase ROM, To improve nutrient delivery to tissue Thank you for the opportunity to evaluate your patient. For Medicare and Medicare HMO plans, please review the plan of care and approve it. It will need to be FAXED BACK to us at [phone] for Medicare purposes. For Medicare only, by signing this I certify the plan of care. Please let me know if there are questions or concerns regarding this plan of care. Physician Signature: Date:
--- NOTE | 2020-12-02 09:20 | HP.PTREVAL_ITS ---
Dr. Rad Cuevas MD, It has been my pleasure to treat LOLITA REED over the last 10 visits for L TKA. Please see the progress note below for an update on the physical therapy plan of care! Subjective: Pt. reports overall doing 85% better. He reports being cleared to start swimming. He is going to start swimming later this week. 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 He denies pain today. Objective/Function: ROM: 0-2-110deg active ROM, 0-0-113deg PROM. MMT: 5/5 throughout. GAIT: Pt. is ambulating well, but does lack slight TKE in BLEs. Pt. is able to improve with VC/TCing. STAIRS: reciprocal pattern, with slight early heel off during descending. no HR used. Plan Plan: Pt. is still stiff into flexion and extension. He needs to work on this and to be consistent with stretching at home. Balance/Gait/Functional tests - Balance/Special Test Scores Lower Extremity Functional Score: 59 TUG Test Time Seconds: 18.9 Tug Test: <20 sec.=mostly independent Goals Goal 1:: LTG: Pt. to be I with HEP. Goal Time Frame: 4-6 Weeks Goal Progress: Progressing Goal 2:: STG: Pt. to have increased L knee ROM to 0-0-110deg. Goal Time Frame: 2 Weeks Goal Progress: Progressing Goal 3:: LTG: Pt. to have increased ROM of L knee to 0-0-120deg. Goal Time Frame: 4-6 Weeks Goal Progress: Progressing Goal 4:: LTG: Pt. to have increased LLE strength increased to at least 5-/5 throughout. Goal Time Frame: 4-6 Weeks Goal Progress: Goal Met Goal 5:: LTG: Pt. to ambulate without AD for unlimited distances with out increase in symptoms. Goal Time Frame: 4-6 Weeks Goal Progress: Progressing Goal 6:: LTG: Pt. to be able to negotiate steps with 1 HR with reciprocal pattern. Goal Time Frame: 4-6 Weeks Goal Progress: Goal Met Anticipated Interventions Patient/Client Instruction: Educate patient on: Condition, Plan of Care, Risk Factors, Benefits of Fitness Program For the Purpose of:: To foster healthy habits, To improve decision making, To facilitate caregiver knowledge, To improve self management, To prevent re- injury, To improve ability to perform tasks related to life management Therapeutic Exercise to Include: Strength training, Power training, Balance training, Postural training, Flexibilty training, Gait and locomotor training, Passive ROM, Active ROM For the Purpose of:: To decrease pain, To decrease swelling/inflammation, To increase ROM, To improve nutrient delivery to tissue, To increase oxygenation perfusion, To improve muscle performance and motor function, To improve health of tissue, To decrease soft tissue restriction, To increase flexibility/ROM, To improve endurance, To improve balance, To improve safety with gait, To assume or resume ADL's Manual Therapy Techniques to Include: Mobilization, Passive ROM, Soft tissue mobilization For the Purpose of:: To decrease pain, To decrease swelling/inflammation, To increase ROM, To improve nutrient delivery to tissue IF ES: Yes Cryotherapy (ice pack, ice massage): Yes Vasopneumatic device: Yes For the Purpose of:: To decrease pain, To decrease swelling/inflammation, To increase ROM, To improve nutrient delivery to tissue Please do not hesitate to contact me at [phone] by phone or Fax: if you have questions or concerns regarding this new plan of care! Sincerely, LARRY VillarrealT
--- NOTE | 2020-12-31 08:09 | HP.PTDCSUM ---
It has been my pleasure to treat LOLITA REED referred by Dr. Rad Cuevas MD, with the diagnosis of L TKA for a total of 12 visit(s). Discharge Date: 12/09/20 Please see the following information for a summary of their discharge status. Subjective: Pt. reports overall doing well. He reports being 80% better overall. No issues with mobility. He is to follow up with physician tomorrow looking at getting his other knee done. No pain reported. L knee Pain Intensity (Out of 10): 0 % Improvement: 80 Objective/Function: AROM: 0-1-111deg. PROM: 0-0-116deg. MMT: 5/5 through out. STAIRS: reciprocal with out issues. GAIT: Pt. has slight stiffness with TKE during stance phase. TUG 7:4sec. I talked to him about being consistent with his stretching both is into extension and flexion at home. Pt. consents. Pt. planning to have his R knee replaced later this year and to continue to continue with ROM at home. I talked to him about continuing to bike and to work on end ranges of motion. Goal 1:: LTG: Pt. to be I with HEP. Goal Progress: Goal Met Goal 2:: STG: Pt. to have increased L knee ROM to 0-0-110deg. Goal Progress: Progressing Goal 3:: LTG: Pt. to have increased ROM of L knee to 0-0-120deg. Goal Progress: Progressing Goal 4:: LTG: Pt. to have increased LLE strength increased to at least 5-/5 throughout. Goal Progress: Goal Met Goal 5:: LTG: Pt. to ambulate without AD for unlimited distances with out increase in symptoms. Goal Progress: Goal Met Goal 6:: LTG: Pt. to be able to negotiate steps with 1 HR with reciprocal pattern. Goal Progress: Goal Met Plan: Pt. with be Dc to HEP at this point in time. Discharge Comments: Pt. is overall doing welling. Pt. reports If there are questions or concerns regarding this patient's physical therapy, please feel free to call me at [phone]. Thank you for the referral of this patient. Sincerely, Cody Stallings Sipos, DPT Balance/Gait/Functional tests - Balance/Special Test Scores Lower Extremity Functional Score: 59 TUG Test Time Seconds: 18.9 Tug Test: <20 sec.=mostly independent
== END 2020-12-09 19:00 | disposition home or self-care (01) ==
LOC: PT 07:00
PROVIDERS: PCP Family Medicine; Referring Provider Orthopaedic Surgery Adult Reconstructive Orthopaedic Surgery; Visit Provider Orthopaedic Surgery Adult Reconstructive Orthopaedic Surgery
DX: M17.12 Unilateral primary osteoarthritis, left knee (principal); Z96.652 Presence of left artificial knee joint
CPT/HCPCS: 97016; 97110; 97161; 97164

== ENCOUNTER 2021-02-10 09:00 | Outpatient (RCR) | payer MEDICARE, OTHER, SELFPAY ==
--- NOTE | 2020-12-31 12:30 | HP.PTEVAL_ITS ---
Patient's Visit Information LOLITA REED is a 75 year old M referred to Physical Therapy by Dr. Rad Cuevas MD with a diagnosis of post op R TKA. Date of Evaluation: 12/31/20 Physical Therapist: Arely Cancino - Visit Plan Frequency: 3x /Week Duration: 4 Weeks Plan: Pt to begin with progressive AROM exercises and gentle strengthening, progressing to functional strengthening and activity specific rehab in order to facilitate return to PLOF. - Subjective Pt is 2 days post op R TKA, L TKA was done 10/26. States L recovery was a breeze but that the right seems to be giving him a bit more trouble. He reports that he is taking oxy for pain. Pt is wearing compression stockings and uses the compression device at home. Reports he has been icing and elevating. Denies symptoms that would indicate blood clot. Reports muscle soreness in quad and calf but that his knee itself is not painful. Pt agreed to be part of [employer] study and is anxious to get back to his recreational activities. - Pain R quad/calf muscles Pain Intensity (Out of 10): 2 Pain Intensity Range: 2, 5 - Objective POSTURE: Lacks TKE on R, weight shift L. OBSERVATION/PALPATION: incision unremarkable, redness/swelling as expected, no s/s DVT. ROM: R knee F 83 degrees, R knee lacks 12 degrees E, L knee F 106 degrees, L knee lacks 1 degree E. MMT: LLE grossly 5/5, R extension 25.3 lbs, R flexion 21.8 lbs. hip abd/add 4-/5. GAIT: amb with FWW, good step length, lacks R TKE in stance and has reduced flexion in swing. TU.45 sec with FWW - Balance/Special Test Scores Lower Extremity Functional Score: 28 TUG Test Time Seconds: 16.45 WOMAC Total Score: 53 WOMAC Percentatge: 44.8000 - Goals Goal 1:: Pt to report compliance with HEP. Goal Time Frame: 2-4 Weeks Goal 2:: STG: Pt to increase R knee flexion ROM to 100 degrees Goal Time Frame: 2 Weeks Goal 3:: LTG: Pt to increase R knee flexion ROM to 120 degrees. Goal Time Frame: 4-6 Weeks Goal 4:: Pt to ambulate unlimited distances with LRD and without gait deviations. Goal Time Frame: 4-6 Weeks Goal 5:: Pt to navigate flight of stairs with reciprocal pattern at normal gait speed. Goal Time Frame: 4-6 Weeks Goal 6:: Pt to demonstrate 5/5 R knee strength for safe return to PLOF. Goal Time Frame: 4-6 Weeks - Rehabilitation Potential Physical Therapy Diagnosis: Pt presents with s/s consistent with R TKA (decreased AROM, increased swelling, decreased functional and recreational activity). Pt would benefit from skilled PT to address stated problems and facilitate return to full participation in desired activities. Rehabilitation Potential: Excellent - Anticipated Interventions Patient/Client Instruction: Educate patient on: Condition, Plan of Care Therapeutic Exercise to Include: Strength training, Endurance training, Balance training, Coordination, Gait and locomotor training, Active ROM For the Purpose of:: To decrease swelling/inflammation, To increase ROM, To improve ability to perform ADL's, To improve gait and locomotor functions Functional electric stimulation: Yes Cryotherapy (ice pack, ice massage): Yes Thank you for the opportunity to evaluate your patient. For Medicare and Medicare HMO plans, please review the plan of care and approve it. It will need to be FAXED BACK to us at [phone] for Medicare purposes. For Medicare only, by signing this I certify the plan of care. Please let me know if there are questions or concerns regarding this plan of care. Physician Signature: Date:
--- NOTE | 2021-02-11 08:19 | HP.PTDCSUM ---
It has been my pleasure to treat LOLITA REED referred by Dr. Rad Cuevas MD, with the diagnosis of post op R TKA for a total of 9 visit(s). Discharge Date: 02/10/21 Please see the following information for a summary of their discharge status. Subjective: Pt reports this is his last session, and was told by physician that everything with his knee is looking good. R quad/calf muscles Pain Intensity (Out of 10): 0 % Improvement: 80 Objective/Function: STRENGTH: Right: knee flexors 5/5, extensors 5/5, hip IR 5/5, ER 5/5, flexors 4+. ROM: 0-6 -110. GAIT: improved, still does not have full knee extension during stance phase. TU.2 sec. All goals met or near met. Goal 1:: Pt to report compliance with HEP. Goal Progress: Goal Met Goal 2:: STG: Pt to increase R knee flexion ROM to 100 degrees Goal Progress: Goal Met Goal 3:: LTG: Pt to increase R knee flexion ROM to 120 degrees. Goal Progress: Progressing Goal 4:: Pt to ambulate unlimited distances with LRD and without gait deviations. Goal Progress: Goal Met Goal 5:: Pt to navigate flight of stairs with reciprocal pattern at normal gait speed. Goal Progress: Goal Met Goal 6:: Pt to demonstrate 5/5 R knee strength for safe return to PLOF. Goal Progress: Goal Met Plan: D/C PT with understanding that pt will continue to work on ROM and strength with HEP. Discharge Comments: Pt. was seen for his total knee arthroplasty. He is overall doing well. He has no pain. He is slightly limited with flexion and ext, but is progressing. He has some slight and reducing tingling in his calf and thigh, but has improved over the past week or so. He is independent with his current program. He is to focus on stretching and his swimming program. Pt. will be DC from PT at this point in time. If there are questions or concerns regarding this patient's physical therapy, please feel free to call me at [phone]. Thank you for the referral of this patient. Sincerely, Cody Stallings Sipos, DPT Balance/Gait/Functional tests - Balance/Special Test Scores Lower Extremity Functional Score: 59 TUG Test Time Seconds: 16.45 Tug Test: <20 sec.=mostly independent WOMAC Total Score: 12 WOMAC Percentage: 87.5000
== END 2021-02-10 19:00 | disposition home or self-care (01) ==
LOC: PT 09:00
PROVIDERS: PCP Family Medicine; Referring Provider Orthopaedic Surgery Adult Reconstructive Orthopaedic Surgery; Visit Provider Orthopaedic Surgery Adult Reconstructive Orthopaedic Surgery
DX: M17.11 Unilateral primary osteoarthritis, right knee (principal)
CPT/HCPCS: 97110; 97161; 97164

== ENCOUNTER 2021-02-20 13:57 | Inpatient (IN) | payer MEDICARE, OTHER, SELFPAY ==
[2021-02-20 13:58] VITALS: BP 139/99; PULSE 93; RESP 18; TEMP 37.8; O2SAT 95; BMI 34.0
[2021-02-20 15:48] LABS: Absolute Neutrophil Count 9.7 X10^3/uL (2.0-7.7); Basophil# 0.05 X10^3/uL; Basophil% 0.4 % (0-1); Eosinophil# 0.03 X10^3/uL; Eosinophils% 0.2 % (0-5); Hematocrit 45.2 % (40-54); Hemoglobin 15.4 g/dL (13.0-16.5); Mean Corp Hgb Conc 34.1 g/dL (32-36); Mean Corpuscular Hgb 31.3 pg (27.0-32.0); Mean Corpuscular Volume 91.9 fL (80-94); Mean Platelet Vol. 9.2 fl (6.2-12.0); Monocyte% 7.1 % (0-10); NRBC Flagged by Analyzer 0 % (0-5); Neutrophil # 9.73 X10^3/uL (2.7-7.7); Neutrophil % 76.7 % (47-70); Platelet Count 226 K/mm3 (150-450); RBC Distribution Width SD 43.7 fl (35.1-43.9); Red Blood Count 4.92 M/mm3 (4.6-6.2); White Blood Count 12.7 K/mm3 (4.4-11.0)
[2021-02-20 16:00] LABS: Bacteria 0 SEEN /hpf (None Seen); Mucous, Urine 0 SEEN /hpf (<or=2+); Red Blood Cells-Urine 0 SEEN /hpf (0-5); Squamous Epithelial Cells - UA 0 SEEN /hpf (0-5); White Blood Cells 0 SEEN /hpf (0-5)
[2021-02-20 16:02] LABS: Anion Gap 5 (5-15); BUN 13 mg/dL (7-18); BUN/Creat Ratio 12.1 RATIO (10-20); Calcium,Total 9.5 mg/dL (8.5-10.1); Chloride 102 mmol/L (98-107); Creatinine, Serum 1.07 mg/dL (0.70-1.30); EST Glomerular Filtration Rate 72 mL/min (>60); Est Glom Filt Rate - Afr Amer 87 mL/min (>60); Estimated Creatinine Clearance 57.71 ml/min; Glucose 118 mg/dL (74-106); Potassium 4.3 mmol/L (3.5-5.1); Sodium Level 137 mmol/L (136-145)
[2021-02-20 16:02] LABS: Color, Urine Yellow (Yellow); Glucose, Dipstick Normal (Normal); Ketone-Dipstick 5 mg/dl (Negative); Leukocyte Esterase-Dipstick 25 /ul (Negative); Nitrite-Dipstick Negative (Negative); Occult Blood-Urine Negative /ul (Negative); Protein-Dipstick 15 mg/dl (Negative); Urine Bilirubin Dipstick Negative (Negative); Urine Clarity Clear (Clear); Urine Urobilinogen 1 mg/dl (Normal)
--- NOTE | 2021-02-20 16:15 | EKG12_ITS ---
Test Reason : Blood Pressure : / mmHG Vent. Rate : 071 BPM Atrial Rate : 071 BPM P-R Int : 198 ms QRS Dur : 098 ms QT Int : 382 ms P-R-T Axes : 016 -11 011 degrees QTc Int : 415 ms Normal sinus rhythm Normal ECG Confirmed by SYEDA HALL, MADY ([id number]), field map editor ALPHONSE KATE ([id number]) on 02/23/2021 11:17:50 AM Referred By: Confirmed By:MADY LANDA MD
--- NOTE | 2021-02-20 16:16 | EDS_ITS ---
HPI History of Present Illness Chief Complaint: Fever Detail of Chief Complaint: Fever, rectal bleeding, chills, fast heart rate Informant: patient and spouse/S.O. Onset/Context/Timing Onset: Days Context: Sudden Onset Timing: Intermittent and Waxes and wanes Quality: Subjective as well as objective fever, chills, not feeling well, fatigue ge Location: Generalized and rectal bleeding suspected due to hemorrhoids Current Severity: Mild Maximum Severity: Moderate Worsened by: Nothing Relieved by: Nothing Associated Symptoms Associated Symptoms: Generalized weakness with infectious symptoms and bright red blood per rect Narrative Narrative: Patient is a 75-year-old male with history of obstructive sleep apnea, hypertension, hyperlipidemia, atrial fib flutter, who presents with fever and shaking chills. Onset of illness 3 days ago. Is also noted blood per rectum starting 3 days ago. He does complain of rectal pain. He has been applying Preparation H to presumed hemorrhoids. He denies double vision, blurred vision or photophobia denies neck pain or neck stiffness. Does complain of bifrontal head discomfort. He denies rhinorrhea, congestion or postnasal drainage. He denies sore throat. He denies cough or shortness of breath. He denies abdominal pain, vomiting or diarrhea. He has had nausea. He does report rapid heart rate and has increased his metoprolol. He does not know if his fast heart rate was associated with temperature. He does report generalized weakness fatigue and lack of energy. He has been vaccinated for Covid with booster. He does not believe he was vaccinated for influenza. Prior similar symptoms: Yes Recent Illness/Hospitalization: Yes [facility] Medical History (Updated 02/20/21 @ 18:[address] Zane Guerrero MD) A-fib Acute appendicitis with localized peritonitis Atrial flutter HTN (hypertension) Hyperlipidemia Home Medications atorvastatin 20 mg PO QHS 08/11/14 [History Last Taken 09/30/17] losartan 50 mg PO DAILY 10/02/17 [History Last Taken 10/01/17] apixaban 5 mg tablet 5 mg PO BID 01/27/20 [History Last Taken Unknown] dofetilide 500 mcg capsule 5,000 mcg PO ONCE cap 09/28/20 [History Last Taken Unknown] metoprolol succinate 25 mg tablet,extended release 24 hr 12.5 mg PO DAILY tab 09/28/20 [History Last Taken Unknown] Allergy/AdvReac Type Severity Reaction Status Date / Time flecainide AdvReac Other Verified 02/20/21 13:57 ramipril [From Altace] AdvReac Other Verified 02/20/21 13:57 SARDIDOL AdvReac Other Uncoded 02/20/21 13:57 Surgical History S/P laparoscopic appendectomy (~10/02/17) Social History (Updated 02/20/21 @ 16:[address] Zane Guerrero MD) household members: spouse Smoking Status: Never smoker alcohol intake: never substance use type: does not use ROS ROS ED Constitutional Constitutional ED: Reports chills, fever(s), subjective and sweats; Denies weight loss Eyes Eyes: Denies blurry vision, change in vision or diplopia ENT ENT ED: Denies ear pain, rhinorrhea or sore throat Cardiovascular Cardiovascular: Reports palpitations and racing heartbeat; Denies chest pain, orthopnea or paroxysmal nocturnal dyspnea Respiratory/Chest Respiratory/Chest: Denies cough, dyspnea, dyspnea on exertion, orthopnea, paroxysmal nocturnal dyspnea or sputum Gastrointestinal Gastrointestinal: Reports nausea and other Details: Hematochezia and rectal pain ; Denies abdominal pain, constipation, diarrhea, melena or vomiting Genitourinary Genitourinary ED: Denies dysuria, hematuria or urinary frequency Musculoskeletal Musculoskeletal: Denies arthralgias, back pain, myalgias or neck pain Integumentary Denies abscess, Abrasions or rash Neurologic Neurologic: Reports weakness; Denies headache(s) or paresthesias Endocrine Endocrinology: Denies polydipsia, polyphagia or polyuria Hematologic/Lymphatic Hematologic/Lymphatic: Reports easy bruising; Denies anemia or easy bleeding EXAM Physical Exam Const Vital Signs: 02/20/21 13:58 02/20/21 16:36 02/20/21 18:00 Temperature 100.1 F H 98 F 98.8 F Temperature Source Temporal Temporal Temporal Pulse Rate 93 73 74 Respiratory Rate 18 13 18 Respiratory Effort Normal Non-Labored Respiratory Pattern Normal Blood Pressure 139/99 H 132/84 H 132/80 H Blood Pressure Mean 112 100 97 Pulse Ox 95 98 96 Oxygen Delivery Method Room Air Room Air Room Air Positive well nourished and well developed General Appearance ED: well developed and other Patient appears ill but not toxic. ; Negative for cyanotic, diaphoretic or NAD HEENT Reports moist mucous membranes; Denies TM's clear or dry mucous membranes Negative for trauma or tenderness Tympanic Membrane ED: Negative for TM's clear Mouth ED: No dry mucous membranes Mouth: No dry mucous membranes Eyes PERRL and EOMs intact bilaterally General Eye ED: Negative for pale conjunctiva or scleral icterus Neck no lymphadenopathy, supple and no JVD Chest Wall inspection of chest normal Resp normal respiratory effort and clear to auscultation bilaterally Effort and Inspection: Negative for pain with movement Cardio regular rate, regular rhythm, S1 normal heart sound, S2 normal heart sound and no murmurs GI normal to inspection, nondistended, normoactive bowel sounds, non-tender and non-distended Palpation: soft Narrative: Brennan has significant tenderness on rectal exam. There may be a small stricture. There is a small hemorrhoid. There is also concern for a ischio rectal abscess. Prostate is not boggy or warm. It was slightly tender which I believe is due to a ischio rectal abscess. Back/Spine no CVA tenderness Cervical Spine: Negative for cervical spine tenderness Thoracic Spine / Upper Back: Negative for thoracic spinal tenderness or paraspinal muscle tenderness Extremity normal to inspection General Extremety ED: Negative for edema or tenderness General Extremity: Negative for edema Neuro oriented x3, CN's II-XII intact bilaterally and no sensory deficits noted Sensorium / Orientation: alert Motor Exam: strength 5/5 throughout Psych mental status grossly normal Skin No no rashes or lesions noted and No no wounds Skin Narrative: Suspected perianal/ischio rectal abscess with perianal/gluteal cellulitis. MDM MDM MDM Narrative Medical decision making narrative: Based on history and physical exam patient's fever is due to perianal disease. CT was obtained to assess for abscess versus cellulitis. Blood cultures were obtained and patient was started on 4.5 g of Zosyn IV piggyback. Case was discussed in a Martha. Plan is operating room in the morning. He requested Zosyn every 6 hours, n.p.o. after midnight and hold anticoagulant dose this evening. When the hospitalist arrives at 7:00 and there is a nurse to care for boarded patients he will be notified of patient and Dr. Thomas's request. Dr. Thomas has seen the patient in the emergency department. Lab Data Attestation: I reviewed the patient's lab results. Lab results narrative: Patient has 2 sirs criteria with source. He has sepsis by definition. Lactate is pending at the time of this note 1625. UA is negative. Basic metabolic panel reveals slight elevation of glucose at 118. Labs: Laboratory Results - last 24 hr 02/20/21 02/20/21 02/20/21 15:40 15:40 15:43 WBC 12.7 H RBC 4.92 Hgb 15.4 Hct 45.2 MCV 91.9 MCH 31.3 MCHC 34.1 RDW Std Deviation 43.7 RDW Coeff of Camilla 13.0 Plt Count 226 MPV 9.2 Immature Gran % (Auto) 0.600 Neut % (Auto) 76.7 H Lymph % (Auto) 15.0 L [place] % (Auto) 7.1 Eos % (Auto) 0.2 Baso % (Auto) 0.4 Absolute Neuts (auto) 9.7 H Absolute Lymphs (auto) 1.90 Nucleated RBC % 0 Sodium 137 Potassium 4.3 Chloride 102 Carbon Dioxide 30.0 Anion Gap 5 BUN 13 Creatinine 1.07 Estim Creat Clear Calc 57.71 Est GFR (MDRD) Af Amer 87 Est GFR (MDRD) Non-Af 72 BUN/Creatinine Ratio 12.1 Glucose 118 H Lactic Acid Calcium 9.5 Urine Color Yellow Urine Clarity Clear Urine pH 5.0 Ur Specific [place] 1.020 Urine Protein 15 H Urine Glucose (UA) Normal Urine Ketones 5 H Urine Occult Blood Negative Urine Nitrite Negative Urine Bilirubin Negative Urine Urobilinogen 1 H Ur Leukocyte Esterase 25 H Urine RBC 0 SEEN Urine WBC 0 SEEN Ur Squamous Epith Cells 0 SEEN Urine Bacteria 0 SEEN Urine Mucus 0 SEEN 02/20/21 16:30 WBC RBC Hgb Hct MCV MCH MCHC RDW Std Deviation RDW Coeff of [place] Plt Count MPV Immature Gran % (Auto) Neut % (Auto) Lymph % (Auto) [place] % (Auto) Eos % (Auto) Baso % (Auto) Absolute Neuts (auto) Absolute Lymphs (auto) Nucleated RBC % Sodium Potassium Chloride Carbon Dioxide Anion Gap BUN Creatinine Estim Creat Clear Calc Est GFR (MDRD) Af Amer Est GFR (MDRD) Non-Af BUN/Creatinine Ratio Glucose Lactic Acid 1.2 Calcium Urine Color Urine Clarity Urine pH Ur Specific [place] Urine Protein Urine Glucose (UA) Urine Ketones Urine Occult Blood Urine Nitrite Urine Bilirubin Urine Urobilinogen Ur Leukocyte Esterase Urine RBC Urine WBC Ur Squamous Epith Cells Urine Bacteria Urine Mucus Radiography Diagnostic Testing: Clinical Impression(s) from Imaging Studies Pelvis CT 02/20/21 16:16 IMPRESSION: Irregular peripherally enhancing low-density collection posterior and to the left of the rectum compatible with a perirectal abscess. There are no abnormalities within the pelvic cavity. Individualized dose optimization techniques were used for this CT. at 1739 Reported and signed by: Ra Deal MD Electronically Signed: Ra Deal MD at 17:37 EST Tel , Service support , EKG Initial EKG: Attestation: I personally reviewed and interpreted this EKG as follows: Interpretation: Sinus Rhythm (Normal sinus rhythm with a ventricular rate of 71. NM interval 198. QRS duration 98 ms. QT interval 382 ms. [place] normal. EKG is normal.) Discharge Plan Triage Chief Complaint: Fever ED Provider: Zane Guerrero Dx/Rx/DC Orders Clinical Impression: Sadie-rectal abscess, Sepsis, Anticoagulant long-term use Prescriptions: No Action Eliquis 5 mg tablet 5 mg PO BID RF: 0 metoprolol succinate 25 mg tablet extended release 24 hr 12.5 mg PO DAILY RF: 0 dofetilide 500 mcg capsule 5,000 mcg PO ONCE RF: 0 atorvastatin 20 MG tablet 20 mg PO QHS RF: 0 losartan 50 MG tablet 50 mg PO DAILY RF: 0 Primary Care Provider: Víctor Pak Referrals: Víctor Pak MD [Primary Care Provider] -
--- NOTE | 2021-02-20 16:16 | CT_ITS ---
EXAM: CT PELVIS WITH INTRAVENOUS CONTRAST : 1945 CLINICAL INDICATION: Fever, rectal pain, fluctuance, erythema TECHNIQUE: Helically acquired images were obtained of the pelvis with intravenous contrast. This CT exam was performed using one or more of the following dose reduction techniques: automated exposure control, adjustment of the mA and/or kV according to patient size, and/or use of iterative reconstruction technique. This report was created using [employer] report generation technology. CONTRAST: IV 100mL [id number] COMPARISON: 10/02/2017 FINDINGS: BOWEL: Unremarkable as visualized. No bowel distention. No focal inflammatory change. APPENDIX: No evidence of acute appendicitis. INTRAPERITONEAL SPACE: Unremarkable. No ascites or other fluid collection. No free air. BLADDER: Unremarkable. REPRODUCTIVE: Unremarkable as visualized. No mass. BONES/JOINTS: Unremarkable. No suspicious lytic or blastic abnormality. SOFT TISSUES: There is a irregular low-density collection posterior to the left lateral aspect of the rectum compatible with a perirectal abscess No pelvic wall hernia. LYMPH NODES: Unremarkable. No enlarged lymph nodes. CT/Pelvis WITH IV Contrast IMPRESSION: Irregular peripherally enhancing low-density collection posterior and to the left of the rectum compatible with a perirectal abscess. There are no abnormalities within the pelvic cavity. Individualized dose optimization techniques were used for this CT. at 1739 Reported and signed by: Ra Deal MD Electronically Signed: Ra Deal MD at 17:37 EST Tel , Service support ,
[2021-02-20] MEDS: 0.9% Normal Saline 1,000 ML 1000 ML IV (16:32)
[2021-02-20 16:36] VITALS: BP 132/84; PULSE 73; RESP 13; TEMP 36.6; O2SAT 98
[2021-02-20 17:10] LABS: Lactic Acid 1.2 mmol/L (0.4-1.9)
[2021-02-20 18:00] VITALS: BP 132/80; PULSE 74; RESP 18; TEMP 37.1; O2SAT 96
--- NOTE | 2021-02-20 18:41 | EX.PCM.CON.S ---
Assessment & Plan Assessment/Plan (1) Sadie-rectal abscess: PLAN: Tomorrow around noon and going to take him to the OR and perform an I&D of a perirectal abscess. I do not think that doing this tonight is appropriate given the fact that he is on Eliquis and bleeding is a significant risk for this. Since there is a bed shortage he will remain in the emergency department IV antibiotics will be ordered and we will hold his Eliquis until we can do his surgery tomorrow. I have counseled the patient as to the risks of the procedure, including but not limited to: infection, bleeding, injury to any blood vessels/nerves, injury to any bowel/bladder, injury to any intraabdominal organs such as the liver/spleen, perforation of the GI tract, intraabdominal abscess/bleeding, incisional hernias, injury to the common bile duct/biliary ducts, injury to the spermatic cord/vessels/testicles, recurrence of hernia(s), complications of anesthesia, etc. The patient verbalizes understanding. HPI Consult Data Date of Consult: 02/20/21 HPI Narrative HPI Narrative: LOLITA REED, Patient is a 75-year-old male with history of obstructive sleep apnea, hypertension, hyperlipidemia, atrial fib flutter, who presents with fever and shaking chills. Onset of illness 3 days ago. Is also noted blood per rectum starting 3 days ago. He does complain of rectal pain. He has been applying Preparation H to presumed hemorrhoids. He denies double vision, blurred vision or photophobia denies neck pain or neck stiffness. Does complain of bifrontal head discomfort. He denies rhinorrhea, congestion or postnasal drainage. He denies sore throat. He denies cough or shortness of breath. He denies abdominal pain, vomiting or diarrhea. He has had nausea. He does report rapid heart rate and has increased his metoprolol. He does not know if his fast heart rate was associated with temperature. He does report generalized weakness fatigue and lack of energy. He has been vaccinated for Covid with booster. He does not believe he was vaccinated for influenza. CT scan of the pelvis showed: IMPRESSION: Irregular peripherally enhancing low-density collection posterior and to the left of the rectum compatible with a perirectal abscess. There are no abnormalities within the pelvic cavity. Individualized dose optimization techniques were used for this CT. [facility] Medical History (Updated 02/20/21 @ 18:[address] Eddie Thomas MD) A-fib Acute appendicitis with localized peritonitis Atrial flutter HTN (hypertension) Hyperlipidemia Home Medications atorvastatin 20 mg PO QHS 08/11/14 [History Last Taken 09/30/17] losartan 50 mg PO DAILY 10/02/17 [History Last Taken 10/01/17] apixaban 5 mg tablet 5 mg PO BID 01/27/20 [History Last Taken Unknown] dofetilide 500 mcg capsule 5,000 mcg PO ONCE cap 09/28/20 [History Last Taken Unknown] metoprolol succinate 25 mg tablet,extended release 24 hr 12.5 mg PO DAILY tab 09/28/20 [History Last Taken Unknown] Allergy/AdvReac Type Severity Reaction Status Date / Time flecainide AdvReac Other Verified 02/20/21 13:57 ramipril [From Altace] AdvReac Other Verified 02/20/21 13:57 SARDIDOL AdvReac Other Uncoded 02/20/21 13:57 Surgical History S/P laparoscopic appendectomy (~10/02/17) Social History household members: spouse Smoking Status: Never smoker alcohol intake: never substance use type: does not use ROS Constitutional Constitutional: Reports chills and fever(s) Cardiovascular Cardiovascular: Reports palpitations and racing heartbeat Respiratory/Chest Respiratory/Chest: Reports cough; Denies dyspnea Gastrointestinal Gastrointestinal: Reports hematochezia, nausea and rectal bleeding Physical Exam Const alert, oriented x3 and no apparent distress General Appearance: cooperative HEENT normocephalic and head/scalp atraumatic Eyes PERRL and EOMs intact bilaterally Resp clear to auscultation bilaterally Cardio Rate: regular rate Rhythm: regular rhythm GI soft to palpation GI Narrative: Patient has a notable perirectal abscess anteriorly. Purulence is coming out of it the surrounding area is red. Lab / Micro Data Result Diagrams: 02/20/21 15:40 02/20/21 15:40 Labs: Laboratory Results - last 24 hr 02/20/21 15:40: WBC 12.7 H, RBC 4.92, Hgb 15.4, Hct 45.2, MCV 91.9, MCH 31.3, MCHC 34.1, RDW Std Deviation 43.7, RDW Coeff of Camilla 13.0, Plt Count 226, MPV 9.2, Immature Gran % (Auto) 0.600, Neut % (Auto) 76.7 H, Lymph % (Auto) 15.0 L, [place] % (Auto) 7.1, Eos % (Auto) 0.2, Baso % (Auto) 0.4, Absolute Neuts (auto) 9.7 H, Absolute Lymphs (auto) 1.90, Nucleated RBC % 0 02/20/21 15:40: Sodium 137, Potassium 4.3, Chloride 102, Carbon Dioxide 30.0, Anion Gap 5, BUN 13, Creatinine 1.07, Estim Creat Clear Calc 57.71, Est GFR (MDRD) Af Amer 87, Est GFR (MDRD) Non-Af 72, BUN/Creatinine Ratio 12.1, Glucose 118 H, Calcium 9.5 02/20/21 15:43: Urine Color Yellow, Urine Clarity Clear, Urine pH 5.0, Ur Specific [place] 1.020, Urine Protein 15 H, Urine Glucose (UA) Normal, Urine Ketones 5 H, Urine Occult Blood Negative, Urine Nitrite Negative, Urine Bilirubin Negative, Urine Urobilinogen 1 H, Ur Leukocyte Esterase 25 H, Urine RBC 0 SEEN, Urine WBC 0 SEEN, Ur Squamous Epith Cells 0 SEEN, Urine Bacteria 0 SEEN, Urine Mucus 0 SEEN 02/20/21 16:30: Lactic Acid 1.2 Micro: Microbiology 02/20/21 14:55 Nasal Secretion SARS-CoV-2 Antigen (Rapid) - Final Radiology Impression Pelvis CT 02/20/21 16:16 IMPRESSION: Irregular peripherally enhancing low-density collection posterior and to the left of the rectum compatible with a perirectal abscess. There are no abnormalities within the pelvic cavity. Individualized dose optimization techniques were used for this CT. at 1731 Reported and signed by: Ra Deal MD Electronically Signed: Ra Deal MD at 17:37 EST Tel , Service support ,
--- NOTE | 2021-02-20 19:18 | HP.PCM.HOS_ITS ---
HPI - General General Date of Admission: 02/20/21 HPI Narrative LOLITA REED, is a 75 M with a significant history of atrial fibrillation status post multiple ablations and cardioversion who presents to emergency department with fever. He reports a home temperature of 102. Further he r eports chills. His heart rate on his home monitor was more than 100 but occasionally it dipped into the 60s. He report that the monitor showed that he was in normal rhythm. Further he reports listlessness, weakness, disequilibrium and blood from his rectum. He denies any shortness of breath, diarrhea, constipation. He reports poor appetite. His symptoms started 2 days before presentation. [facility] Medical History A-fib Acute appendicitis with localized peritonitis Atrial flutter HTN (hypertension) Hyperlipidemia Home Medications atorvastatin 20 mg PO QHS 08/11/14 [History Last Taken 02/19/21 21:00 20 mg] apixaban 5 mg tablet 5 mg PO BID 01/27/20 [History Last Taken 02/20/21 09:00 5 mg] dofetilide 250 mcg PO BID 02/20/21 [History Last Taken 02/20/21 09:00 250 mcg] irbesartan 150 mg PO QHS 02/20/21 [History Last Taken 02/19/21 21:00 150 mg] metoprolol succinate 25 mg PO DAILY 02/20/21 [History Last Taken 02/20/21 09:00 25 mg] Allergy/AdvReac Type Severity Reaction Status Date / Time flecainide AdvReac Other Verified 02/20/21 20:37 ramipril [From Altace] AdvReac Other Verified 02/20/21 20:37 sotalol AdvReac Other Verified 02/20/21 20:37 Family History other other (Denies knowledge of family medical history) Surgical History H/O knee surgery S/P laparoscopic appendectomy (~10/02/17) Social History household members: spouse Smoking Status: Never smoker alcohol intake: never substance use type: does not use ROS ROS Narrative Constitutional: Reports of fever, chills, fatigue, anorexia. Denies change in weight Eyes: Denies blurry vision, change in eye color, change in vision, discharge from eye(s), double vision, erythema, eye pain, loss of vision or other HEENT: Denies abnormal hearing, dysphagia, ear pain, epistaxis, headache(s), hearing loss, nasal congestion, nasal discharge, post nasal drip, sinus pressure, sore throat or other Cardiovascular: Denies chest pain or palpitations. Denies dyspnea on exertion, orthopnea and paroxysmal nocturnal dyspnea Respiratory/Chest: Denies cough, excessive phlegm production, shortness of breath with exertion and wheezing Gastrointestinal: Reports rectal stool. Denies abdominal pain, coffee ground emesis, constipation, diarrhea, dyspepsia, hematemesis, hematochezia, loose stools, melena, nausea, vomiting or other Genitourinary: Reports blood in the rectum, and pain around the rectum. Musculoskeletal: Denies arthralgias, back pain, joint pain, joint stiffness, j oint swelling, myalgias, neck pain or other Neurologic: Reports equilibrium. Denies abnormal gait, abnormal speech, confusion, dizziness, focal weakness, headache(s), numbness, paresthesias, seizure-like activity, seizures, syncope, tingling, tremor(s) or other Psychiatric: Denies anxiety, depression, homicidal ideation, suicidal ideation or other Endocrinology: Denies change in body appearance, cold intolerance, excessive sweating, heat intolerance, polydipsia, polyuria or other Hematologic/Lymphatic: Denies anemia, easy bleeding, easy bruising, lymphadenopathy or other Integumentary: Denies rashes Allergic/Immunologic: Denies rhinitis, hives, eczema, asthma or other Vital Signs Vital Signs Vital Signs: 02/20/21 13:58 02/20/21 16:36 02/20/21 18:00 Temperature 100.1 F H 98 F 98.8 F Temperature Source Temporal Temporal Temporal Pulse Rate 93 73 74 Respiratory Rate 18 13 18 Respiratory Effort Normal Non-Labored Respiratory Pattern Normal Blood Pressure 139/99 H 132/84 H 132/80 H Blood Pressure Mean 112 100 97 Pulse Ox 95 98 96 Oxygen Delivery Method Room Air Room Air Room Air Weight Weight: 101.605 kg Body Mass Index (BMI) 34.0 Physical Exam Narrative Physical exam: General: Well-nourished, well-developed. Head: Normocephalic, atraumatic, no tenderness Eyes: PERRLA, EOMI ENT, no trauma, moist mucous membranes, no rhinorrhea Neck: Nontender, full range of motion, no spinal tenderness, deformities, step- off CVS: Regular rate and rhythm. S1-S2 present. No murmur, gallop or rub. Respiratory : clear to auscultation bilaterally, chest wall nontender, no wheezing Abdomen: Soft, nontender, nondistended, normal bowel sounds, no masses : Erythema and induration around the rectal area. Back: Nontender, no CVA tenderness, no midline spinal tenderness, deformities, step-offs Extremities: Nontender full range of motion, no trauma Skin: Normal color, no trauma, abrasions Neuro: Alert, oriented, cranial nerves II through XII grossly intact. Psychiatry: Normal mood. Normal affect. Not depressed. Not anxious. Results Lab / Micro Data Result Diagrams: 02/20/21 15:40 02/20/21 15:40 Labs: Laboratory Results - last 24 hr 02/20/21 15:40: WBC 12.7 H, RBC 4.92, Hgb 15.4, Hct 45.2, MCV 91.9, MCH 31.3, MCHC 34.1, RDW Std Deviation 43.7, RDW Coeff of Camilla 13.0, Plt Count 226, MPV 9.2, Immature Gran % (Auto) 0.600, Neut % (Auto) 76.7 H, Lymph % (Auto) 15.0 L, [place] % (Auto) 7.1, Eos % (Auto) 0.2, Baso % (Auto) 0.4, Absolute Neuts (auto) 9.7 H, Absolute Lymphs (auto) 1.90, Nucleated RBC % 0 02/20/21 15:40: Sodium 137, Potassium 4.3, Chloride 102, Carbon Dioxide 30.0, Anion Gap 5, BUN 13, Creatinine 1.07, Estim Creat Clear Calc 57.71, Est GFR (MDRD) Af Amer 87, Est GFR (MDRD) Non-Af 72, BUN/Creatinine Ratio 12.1, Glucose 118 H, Calcium 9.5 02/20/21 15:43: Urine Color Yellow, Urine Clarity Clear, Urine pH 5.0, Ur Specific [place] 1.020, Urine Protein 15 H, Urine Glucose (UA) Normal, Urine Ketones 5 H, Urine Occult Blood Negative, Urine Nitrite Negative, Urine Bilirubin Negative, Urine Urobilinogen 1 H, Ur Leukocyte Esterase 25 H, Urine RBC 0 SEEN, Urine WBC 0 SEEN, Ur Squamous Epith Cells 0 SEEN, Urine Bacteria 0 SEEN, Urine Mucus 0 SEEN 02/20/21 16:30: Lactic Acid 1.2 Micro: Microbiology 02/20/21 14:55 Nasal Secretion SARS-CoV-2 Antigen (Rapid) - Final Radiology Impression Pelvis CT 02/20/21 16:16 IMPRESSION: Irregular peripherally enhancing low-density collection posterior and to the left of the rectum compatible with a perirectal abscess. There are no abnormalities within the pelvic cavity. Individualized dose optimization techniques were used for this CT. at 1739 Reported and signed by: Ra Deal MD Electronically Signed: Ra Deal MD at 17:37 EST Tel , Service support , Assessment & Plan Assessment/Plan (1) Sadie-rectal abscess: PLAN: Perirectal abscess Patient meets SIRS criteria with white count of 12.7 and a fever of T-max 101.6. Lactic acid is 1.2. No evidence of organ dysfunction. Trend CBC and BMP. Actual pelvic CT image was independently interpreted and agree radiologist interpretation. emergency part of the discussed the case with general surgeon. Per recommendation from general surgeon we'll keep patients on [id number] Zosyn and keep patient n.p.o except meds with sips. Hold Eliquis. Tylenol for fever ordered. General surgery consult. History of atrial fibrillation Dofetilide and metoprolol continued Admit to MedSurg unit on telemetry. Hypertension Blood pressure is not within goal Home blood pressure medication continued. Trend blood pressure and adjust blood pressure medications. DVT prophylaxis: SCD ordered Charges/Coding Visit Charges Inpatient E&M: 35236 Init Hosp L3
[2021-02-20 19:54] VITALS: BP 118/75; PULSE 84; RESP 21; TEMP 36.6; O2SAT 96
[2021-02-20 20:29] VITALS: BMI 34.0
[2021-02-20 20:35] VITALS: BP 93/66; PULSE 77; RESP 18; O2SAT 98
[2021-02-20] MEDS: Lactated Ringers 1,000 ML 50 ML IV (21:00)
[2021-02-20 21:04] VITALS: BP 127/84; PULSE 78; RESP 18; TEMP 38.7; O2SAT 97
[2021-02-20] MEDS: Atorvastatin Calcium 20 MG Tablet PO (21:33)
[2021-02-20] MEDS: MELATONIN 3 MG TABLET PO (21:33)
[2021-02-20] MEDS: Piperacil/Tazobactam 3.375 GM/50 ML ML IV (21:34)
[2021-02-20] MEDS: Dofetilide 250 MCG Capsule PO (21:34)
[2021-02-20] MEDS: Acetaminophen 325 MG Tablet 650 MG PO (21:46)
--- NOTE | 2021-02-20 21:48 | NURSING ---
Called bassem and renny confirms okay to run atb now for Cesar order and then resume with Dr Gerardo hagan at 0600
[2021-02-21] VITALS (13 sets, daily range): BP systolic 101–134; BP diastolic 56–85; PULSE 58–78; RESP 15–18; TEMP 36.5–37.6; O2SAT 93–99; BMI 34.0; BMI 34.1
--- NOTE | 2021-02-21 03:00 | PCS.PANDOC ---
PANDEMIC DOCUMENTATION INITIATED: Date: 02/20/2021 Time: 2016
[2021-02-21 07:20] LABS: Absolute Lymphocyte Count 1.53 X10^3/uL (0.83-4.51); Absolute Neutrophil Count 9.9 X10^3/uL (2.0-7.7); Basophil# 0.07 X10^3/uL; Basophil% 0.6 % (0-1); Eosinophil# 0.05 X10^3/uL; Eosinophils% 0.4 % (0-5); Hematocrit 40.3 % (40-54); Hemoglobin 13.7 g/dL (13.0-16.5); Lymphocyte # 1.53 X10^3/ul (0.83-4.51); Lymphocyte % 12.2 % (19-41); Mean Corpuscular Hgb 31.1 pg (27.0-32.0); Mean Corpuscular Volume 91.6 fL (80-94); Mean Platelet Vol. 9.6 fl (6.2-12.0); Monocyte# 0.93 X10^3/uL; Monocyte% 7.4 % (0-10); NRBC Flagged by Analyzer 0 % (0-5); Neutrophil # 9.88 X10^3/uL (2.7-7.7); Neutrophil % 79.1 % (47-70); Platelet Count 189 K/mm3 (150-450); RBC Distribution Width CV 12.9 % (11.6-14.6); RBC Distribution Width SD 43.3 fl (35.1-43.9); White Blood Count 12.5 K/mm3 (4.4-11.0)
[2021-02-21 07:50] LABS: Anion Gap 6 (5-15); BUN 14 mg/dL (7-18); BUN/Creat Ratio 15.8 RATIO (10-20); Calcium,Total 8.6 mg/dL (8.5-10.1); Chloride 106 mmol/L (98-107); Creatinine, Serum 0.89 mg/dL (0.70-1.30); EST Glomerular Filtration Rate 89 mL/min (>60); Est Glom Filt Rate - Afr Amer 108 mL/min (>60); Estimated Creatinine Clearance 69.38 ml/min; Glucose 101 mg/dL (74-106); Potassium 3.9 mmol/L (3.5-5.1); Sodium Level 136 mmol/L (136-145)
--- NOTE | 2021-02-21 10:10 | CASEMGMT ---
RN RAHEEM Face to Face with patient for initial transition planning/care coordination assessment. RN CM introduced self and role at [facility]. Patient lying in bed, alert and oriented, at bedside. Patient willing to participate in assessment and is able to answer all questions appropriately. Care providers, pharmacy, and demographics verified. Patient wishes to discharge home, denies need for home health at this time. Patient states he has no further needs or concerns at this time. CM to follow for discharge planning needs that may arise. PCP: Pasha Specialists: Dressing, brattice builder [facility] at discharge Insurance: [employer] Prescription Benefit: yes Living Will/HPOA: none LNOK: Living Arrangements: Patient lives with in an single story home with 2 steps and railing to enter the home. Patient states he is independent at home. Transportation: self/ DME/HHC: patient states she has cane, walker, and cpap. Patient denies previous HHC or SNF. Disposition Plan: Patient to discharge home with family support and follow-up plans in place. Mony CHAUDHRY, RN, CM
--- NOTE | 2021-02-21 10:13 | EKG12_ITS ---
Test Reason : Blood Pressure : / mmHG Vent. Rate : 078 BPM Atrial Rate : 078 BPM P-R Int : 192 ms QRS Dur : 088 ms QT Int : 388 ms P-R-T Axes : -01 -17 -31 degrees QTc Int : 442 ms Poor data quality, interpretation may be adversely affected Sinus rhythm Confirmed by SYEDA HALL, MADY ([id number]), editor trade journal ALPHONSE KATE ([id number]) on 02/23/2021 12:21:24 PM Referred By: CARIE Confirmed By:MADY LANDA MD
[2021-02-21] MEDS: Metoprolol(XL)Succ 25 MG Tablet PO (11:30)
--- NOTE | 2021-02-21 11:43 | EKG12_ITS ---
Test Reason : Blood Pressure : / mmHG Vent. Rate : 071 BPM Atrial Rate : 071 BPM P-R Int : 190 ms QRS Dur : 096 ms QT Int : 388 ms P-R-T Axes : -13 -14 -01 degrees QTc Int : 421 ms Normal sinus rhythm Normal ECG Confirmed by SYEDA HALL, MADY ([id number]), non linear editor ALPHONSE KATE ([id number]) on 02/23/2021 12:27:01 PM Referred By: CARIE Confirmed By:MADY LANDA MD
--- NOTE | 2021-02-21 11:44 | EKG12_ITS ---
Test Reason : Blood Pressure : / mmHG Vent. Rate : 070 BPM Atrial Rate : 070 BPM P-R Int : 188 ms QRS Dur : 094 ms QT Int : 394 ms P-R-T Axes : -09 -14 001 degrees QTc Int : 425 ms Normal sinus rhythm Normal ECG Confirmed by SYEDA HALL, MADY ([id number]), photo editor ALPHONSE KATE ([id number]) on 02/23/2021 12:26:52 PM Referred By: CARIE Confirmed By:MADY LANDA MD
--- NOTE | 2021-02-21 13:07 | PN.HOSP_ITS ---
Subjective Subjective Patient seen and examined. He was admitted through the ED on 02/20/2021 with a complaint of fever and chills with associated weakness and blood from rectum. Imaging showed a perirectal abscess. General surgery on board. was by his bedside at time of review. He denied any pain no fever, he denied any chills, shortness of breath, cough or any bleeding from rectum. had several questions about his surgery as he had been told by general surgery that he would have surgery today. I informed her that I will defer to general surgery with regards to the detailed questions she had about the surgery. He has remained hemodynamically stable. Objective Data Objective Data Vital Signs: Vital Signs Temp Pulse Resp BP Pulse Ox 99.6 F H 68 18 134/85 H 99 02/21/21 11:22 02/21/21 11:30 02/21/21 11:22 02/21/21 11:22 02/21/21 11:22 Oxygen Delivery Method Room Air Weight: 224 lb Body Mass Index (BMI) 34.0 Intake & Output: Intake and Output for Last 24 Hours 02/19/21 02/20/21 02/21/21 23:59 23:59 23:59 Intake Total 1100 / 1100 100 / 100 Balance 1100 / 1100 100 / 100 Lab / Micro Data Result Diagrams: 02/21/21 06:20 02/21/21 06:20 Labs: Laboratory Results - last 24 hr 02/20/21 15:40: WBC 12.7 H, RBC 4.92, Hgb 15.4, Hct 45.2, MCV 91.9, MCH 31.3, MCHC 34.1, RDW Std Deviation 43.7, RDW Coeff of Camilla 13.0, Plt Count 226, MPV 9.2, Immature Gran % (Auto) 0.600, Neut % (Auto) 76.7 H, Lymph % (Auto) 15.0 L, [place] % (Auto) 7.1, Eos % (Auto) 0.2, Baso % (Auto) 0.4, Absolute Neuts (auto) 9.7 H, Absolute Lymphs (auto) 1.90, Nucleated RBC % 0 02/20/21 15:40: Sodium 137, Potassium 4.3, Chloride 102, Carbon Dioxide 30.0, Anion Gap 5, BUN 13, Creatinine 1.07, Estim Creat Clear Calc 57.71, Est GFR (MD RD) Af Amer 87, Est GFR (MDRD) Non-Af 72, BUN/Creatinine Ratio 12.1, Glucose 118 H, Calcium 9.5 02/20/21 15:43: Urine Color Yellow, Urine Clarity Clear, Urine pH 5.0, Ur Specific [place] 1.020, Urine Protein 15 H, Urine Glucose (UA) Normal, Urine Ketones 5 H, Urine Occult Blood Negative, Urine Nitrite Negative, Urine Bilirubin Negative, Urine Urobilinogen 1 H, Ur Leukocyte Esterase 25 H, Urine RBC 0 SEEN, Urine WBC 0 SEEN, Ur Squamous Epith Cells 0 SEEN, Urine Bacteria 0 SEEN, Urine Mucus 0 SEEN 02/20/21 16:30: Lactic Acid 1.2 02/21/21 06:20: WBC 12.5 H, RBC 4.40 L, Hgb 13.7, Hct 40.3, MCV 91.6, MCH 31.1, MCHC 34.0, RDW Std Deviation 43.3, RDW Coeff of Camilla 12.9, Plt Count 189, MPV 9.6, Immature Gran % (Auto) 0.300, Neut % (Auto) 79.1 H, Lymph % (Auto) 12.2 L, [place] % (Auto) 7.4, Eos % (Auto) 0.4, Baso % (Auto) 0.6, Absolute Neuts (auto) 9.9 H, Absolute Lymphs (auto) 1.53, Nucleated RBC % 0 02/21/21 06:20: Sodium 136, Potassium 3.9, Chloride 106, Carbon Dioxide 24.0, Anion Gap 6, BUN 14, Creatinine 0.89, Estim Creat Clear Calc 69.38, Est GFR (MDRD) Af Amer 108, Est GFR (MDRD) Non-Af 89, BUN/Creatinine Ratio 15.8, Glucose 101, Calcium 8.6 Micro: Microbiology 02/20/21 14:55 Nasal Secretion SARS-CoV-2 Antigen (Rapid) - Final Radiography Diagnostic Testing: Radiology Impression Pelvis CT 02/20/21 16:16 IMPRESSION: Irregular peripherally enhancing low-density collection posterior and to the left of the rectum compatible with a perirectal abscess. There are no abnormalities within the pelvic cavity. Individualized dose optimization techniques were used for this CT. at 1739 Reported and signed by: Ra Deal MD Electronically Signed: Ra Deal MD at 17:37 EST Tel , Service support , Physical Exam Const alert, oriented x3 and no apparent distress Exam Limitations: no limitations HEENT head/scalp atraumatic, moist oral mucous membranes and oropharynx normal Head and Scalp: normocephalic Eyes PERRL, EOMs intact bilaterally and conjunctivae normal Neck no lymphadenopathy Resp normal respiratory effort, no retractions, no use of accessory muscles and clear to auscultation bilaterally Cardio regular rate, regular rhythm, S1 normal heart sound, S2 normal heart sound and no murmurs GI normal to inspection, nondistended, normoactive bowel sounds, soft to palpation, non-tender, non-distended and hepatosplenomegaly Extremity normal to inspection, full ROM and no clubbing, cyanosis or edema Peripheral Pulses: Yes pulses 2+ throughout and brachial pulses present Skin no rashes or lesions noted Neuro oriented x3, CN's II-XII intact bilaterally and moves all extremities Sensorium / Orientation: awake and alert Psych affect normal Assessment & Plan Assessment/Plan (1) Sadie-rectal abscess: PLAN: #Perirectal abscess * General surgery on board. * CT of the abdomen and pelvis showed irregular peripherally enhancing low-dens ity collection of the posterior and to the left of the rectum compatible with a perirectal abscess * On IV Zosyn. Eliquis on hold. * On Tylenol for fever. * For surgery today per general surgery * #History of A. fib: Eliquis on hold. On dofetilide and metoprolol #Hypertension: On metoprolol and losartan. Hyperlipidemia: On statin DVT prophylaxis: Eliquis on hold as patient is going for surgery. SCDs. Charges/Coding Visit Charges Inpatient E&M: 59146 Subs Hosp L3
[2021-02-21] MEDS: Lubricating Jelly 60 GM Tube 30 GM (14:05)
--- NOTE | 2021-02-21 14:42 | OP.PCM_ITS ---
Problems Associated Problem List Diagnoses (1) Horseshoe abscess: (2) Sadie-rectal abscess: Report of Operation Date of Procedure: 02/21/21 Pre-Operative Diagnosis: Perirectal abscess Post-Operative Diagnosis: Horseshoe abscess perirectal area Surgery/Procedure Performed:: I&D of horseshoe abscess of perirectal area Surgeon: Martha apartment rental agent: Gerry Granados Type of Anesthesia: General Anesthesiologist: Allen Aleman Drains: Half inch [place] drain Estimated Blood Loss (mL): < 25 cc Description of Procedure: Patient was brought into the operating room. Placed in the supine position. Under excellent general anesthetic legs were placed up in stirrups perianal area was sterilely prepped and draped in usual fashion. Patient had purulence coming out of the left perianal area I opened this up within the lips obtain cultures and sensitivity irrigated with peroxide I saw nothing coming out of his rectum. This abscess went anteriorly to the right side I made a counterincision irrigated the area out with a peroxide saline mixture. I then placed 1/2 inch [place] drain in and around the wound. I sutured it to the skin on the right side with a 3-0 nylon. Peripads were applied sterile dressings were applied and the patient tolerated the procedure well. There was some generalized cellulitis around the whole anal area but I felt no other fluctuant areas and there was no other tracking areas. There were no masses within his anus. Admit VTE Documentation VTE Present on Admission: No VTE Mechan Device Prophylaxis: SCD's VTE Pharm Prophylaxis ordered?: No Reason prophylaxis not ordered:: Procedure Not Indicated
[2021-02-21] MEDS: Losartan Potassium 50 MG Tablet PO (19:17)
--- NOTE | 2021-02-21 20:03 | PCS.PANDOC ---
PANDEMIC DOCUMENTATION INITIATED: Date: 02/20/2021 Time:
[2021-02-21] MEDS: Atorvastatin Calcium 20 MG Tablet PO (20:19)
[2021-02-21] MEDS: Dofetilide 250 MCG Capsule PO (20:19)
[2021-02-21] MEDS: Calcium Carbonate 500 MG Tablet PO (20:59)
[2021-02-21] MEDS: MELATONIN 3 MG TABLET PO (21:03)
[2021-02-22] VITALS (10 sets, daily range): BP systolic 119–150; BP diastolic 75–90; PULSE 49–60; RESP 14–22; TEMP 36.4–36.8; O2SAT 96–100; BMI 34.1
[2021-02-22 06:10] LABS: Absolute Lymphocyte Count 1.14 X10^3/uL (0.83-4.51); Absolute Neutrophil Count 9.9 X10^3/uL (2.0-7.7); Basophil# 0.02 X10^3/uL; Basophil% 0.2 % (0-1); Hematocrit 42.4 % (40-54); Hemoglobin 14.6 g/dL (13.0-16.5); Lymphocyte # 1.14 X10^3/ul (0.83-4.51); Mean Corp Hgb Conc 34.4 g/dL (32-36); Mean Corpuscular Hgb 31.1 pg (27.0-32.0); Mean Corpuscular Volume 90.4 fL (80-94); Mean Platelet Vol. 9.3 fl (6.2-12.0); Monocyte% 2.6 % (0-10); NRBC Flagged by Analyzer 0 % (0-5); Neutrophil # 9.93 X10^3/uL (2.7-7.7); Neutrophil % 86.7 % (47-70); Platelet Count 225 K/mm3 (150-450); RBC Distribution Width CV 12.6 % (11.6-14.6); RBC Distribution Width SD 41.2 fl (35.1-43.9); Red Blood Count 4.69 M/mm3 (4.6-6.2); White Blood Count 11.5 K/mm3 (4.4-11.0)
[2021-02-22 06:32] LABS: Anion Gap 4 (5-15); BUN 17 mg/dL (7-18); Calcium,Total 9.2 mg/dL (8.5-10.1); Chloride 105 mmol/L (98-107); EST Glomerular Filtration Rate 77 mL/min (>60); Est Glom Filt Rate - Afr Amer 94 mL/min (>60); Estimated Creatinine Clearance 61.75 ml/min; Glucose 145 mg/dL (74-106); Potassium 4.4 mmol/L (3.5-5.1); Sodium Level 137 mmol/L (136-145)
[2021-02-22] MEDS: Losartan Potassium 50 MG Tablet PO (08:19)
--- NOTE | 2021-02-22 11:09 | PN.SURG_ITS ---
Subjective Subjective Subjectively the patient is feeling much better. Has not had a bowel movement yet. Objective Data Objective Data Vital Signs: Vital Signs Temp Pulse Resp BP Pulse Ox 97.8 F 53 L 14 130/79 H 99 02/22/21 08:14 02/22/21 08:18 02/22/21 08:14 02/22/21 08:14 02/22/21 08:14 Oxygen Delivery Method Room Air Weight: 224 lb Body Mass Index (BMI) 34.0 Intake & Output: Intake and Output for Last 24 Hours 02/20/21 02/21/21 02/22/21 23:59 23:59 23:59 Intake Total 1100 / 1100 1150 / 1150 50 / 50 Output Total 500 / 500 300 / 300 Balance 1100 / 1100 650 / 650 -250 / -250 Lab / Micro Data Result Diagrams: 02/22/21 05:44 02/22/21 05:44 Labs: Laboratory Results - last 24 hr 02/22/21 05:44: WBC 11.5 H, RBC 4.69, Hgb 14.6, Hct 42.4, MCV 90.4, MCH 31.1, MCHC 34.4, RDW Std Deviation 41.2, RDW Coeff of Camilla 12.6, Plt Count 225, MPV 9.3, Immature Gran % (Auto) 0.500, Neut % (Auto) 86.7 H, Lymph % (Auto) 10.0 L, [place] % (Auto) 2.6, Eos % (Auto) 0.0, Baso % (Auto) 0.2, Absolute Neuts (auto) 9.9 H, Absolute Lymphs (auto) 1.14, Nucleated RBC % 0 02/22/21 05:44: Sodium 137, Potassium 4.4, Chloride 105, Carbon Dioxide 28.0, Anion Gap 4 L, BUN 17, Creatinine 1.00, Estim Creat Clear Calc 61.75, Est GFR (MDRD) Af Amer 94, Est GFR (MDRD) Non-Af 77, BUN/Creatinine Ratio 17.0, Glucose 145 H, Calcium 9.2 Micro: Microbiology 02/20/21 14:55 Nasal Secretion SARS-CoV-2 Antigen (Rapid) - Final Assessment & Plan Assessment/Plan (1) Horseshoe abscess: PLAN: White count is coming down. No fevers no tachycardia no signs of sepsis. Would anticipate probably being able to discharge tomorrow. However if the bed shortage is significant enough patient may be discharged sometime today.
--- NOTE | 2021-02-22 12:04 | PN.HOSP_ITS ---
Subjective Subjective Patient seen and examined. He feels well and has no complaints. Review of systems otherwise negative. He had I&D of his perirectal abscess yesterday and was found to have a horseshoe abscess. He denies any fever and states pain is well controlled. Objective Data Objective Data Vital Signs: Vital Signs Temp Pulse Resp BP Pulse Ox 97.8 F 53 L 14 130/79 H 99 02/22/21 08:14 02/22/21 08:18 02/22/21 08:14 02/22/21 08:14 02/22/21 11:51 Oxygen Delivery Method Room Air Weight: 224 lb Body Mass Index (BMI) 34.0 Intake & Output: Intake and Output for Last 24 Hours 02/20/21 02/21/21 02/22/21 23:59 23:59 23:59 Intake Total 1100 / 1100 1150 / 1150 100 / 100 Output Total 500 / 500 300 / 300 Balance 1100 / 1100 650 / 650 -200 / -200 Lab / Micro Data Result Diagrams: 02/22/21 05:44 02/22/21 05:44 Labs: Laboratory Results - last 24 hr 02/22/21 05:44: WBC 11.5 H, RBC 4.69, Hgb 14.6, Hct 42.4, MCV 90.4, MCH 31.1, MCHC 34.4, RDW Std Deviation 41.2, RDW Coeff of Camilla 12.6, Plt Count 225, MPV 9.3, Immature Gran % (Auto) 0.500, Neut % (Auto) 86.7 H, Lymph % (Auto) 10.0 L, [place] % (Auto) 2.6, Eos % (Auto) 0.0, Baso % (Auto) 0.2, Absolute Neuts (auto) 9.9 H, Absolute Lymphs (auto) 1.14, Nucleated RBC % 0 02/22/21 05:44: Sodium 137, Potassium 4.4, Chloride 105, Carbon Dioxide 28.0, Anion Gap 4 L, BUN 17, Creatinine 1.00, Estim Creat Clear Calc 61.75, Est GFR (MDRD) Af Amer 94, Est GFR (MDRD) Non-Af 77, BUN/Creatinine Ratio 17.0, Glucose 145 H, Calcium 9.2 Micro: Microbiology 02/21/21 Unknown Tissue - Aerobic & Anaerobic Swabs Wound Culture - Preliminary No growth-Final to follow 02/20/21 14:55 Nasal Secretion SARS-CoV-2 Antigen (Rapid) - Final Physical Exam Const alert, oriented x3 and no apparent distress Exam Limitations: no limitations HEENT head/scalp atraumatic, moist oral mucous membranes and oropharynx normal Head and Scalp: normocephalic Eyes PERRL, EOMs intact bilaterally and conjunctivae normal Neck no lymphadenopathy Resp normal respiratory effort, no retractions, no use of accessory muscles and clear to auscultation bilaterally Cardio regular rate, regular rhythm, S1 normal heart sound, S2 normal heart sound and no murmurs GI normal to inspection, nondistended, normoactive bowel sounds, soft to palpation, non-tender, non-distended and hepatosplenomegaly Extremity normal to inspection, full ROM and no clubbing, cyanosis or edema Peripheral Pulses: Yes pulses 2+ throughout Skin no rashes or lesions noted Skin Narrative: intact dressing over surgical site in lower buttock area. Neuro oriented x3, CN's II-XII intact bilaterally and moves all extremities Sensorium / Orientation: awake and alert Psych affect normal Assessment & Plan Assessment/Plan (1) Sadie-rectal abscess: PLAN: #Perirectal abscess * General surgery on board. * CT of the abdomen and pelvis showed irregular peripherally enhancing low- density collection of the posterior and to the left of the rectum compatible with a perirectal abscess * s/p I&D with insertion of drain. * On IV Zosyn. Eliquis on hold. * On Tylenol for fever. * today is pOD 1. Doing well. * #History of A. fib: Eliquis on hold. On dofetilide and metoprolol. per dicussion with surgery, for resumption of eliquis tomorrow #Hypertension: On metoprolol and losartan. Hyperlipidemia: On statin DVT prophylaxis: Eliquis on hold. SCDs Disposition: for dc home tomorrow. Charges/Coding Visit Charges Inpatient E&M: 37621 Subs Hosp L2
[2021-02-22] MEDS: 0.9% Saline Lock 10 ML Syringe IV (15:51)
[2021-02-22] MEDS: Calcium Carbonate 500 MG Tablet PO ×2 (16:01→20:42)
[2021-02-22] MEDS: Dofetilide 250 MCG Capsule PO (20:31)
[2021-02-22] MEDS: Atorvastatin Calcium 20 MG Tablet PO (20:31)
[2021-02-22] MEDS: Piperacil/Tazobactam 3.375 GM/50 ML ML IV (20:31)
[2021-02-22] MEDS: Famotidine 20 MG Tablet 40 MG PO (22:18)
[2021-02-22] MEDS: Mag Hydrox/Al Hydrox/Simeth 30 ML UDC PO (22:18)
[2021-02-23 00:08] VITALS: PULSE 58
[2021-02-23 02:25] VITALS: BP 133/68; PULSE 52; RESP 16; TEMP 36.5; O2SAT 96
[2021-02-23 03:56] VITALS: PULSE 49
[2021-02-23] MEDS: Piperacil/Tazobactam 3.375 GM/50 ML ML IV (06:28)
[2021-02-23 07:03] LABS: Absolute Lymphocyte Count 1.99 X10^3/uL (0.83-4.51); Absolute Neutrophil Count 7.5 X10^3/uL (2.0-7.7); Basophil# 0.04 X10^3/uL; Basophil% 0.4 % (0-1); Eosinophil# 0.04 X10^3/uL; Eosinophils% 0.4 % (0-5); Hematocrit 40.4 % (40-54); Hemoglobin 13.5 g/dL (13.0-16.5); Lymphocyte # 1.99 X10^3/ul (0.83-4.51); Lymphocyte % 19.5 % (19-41); Mean Corp Hgb Conc 33.4 g/dL (32-36); Mean Corpuscular Hgb 30.8 pg (27.0-32.0); Mean Platelet Vol. 9.7 fl (6.2-12.0); Monocyte# 0.59 X10^3/uL; Monocyte% 5.8 % (0-10); NRBC Flagged by Analyzer 0 % (0-5); Neutrophil # 7.47 X10^3/uL (2.7-7.7); Neutrophil % 73.4 % (47-70); Platelet Count 235 K/mm3 (150-450); RBC Distribution Width CV 12.8 % (11.6-14.6); RBC Distribution Width SD 43.1 fl (35.1-43.9); Red Blood Count 4.39 M/mm3 (4.6-6.2); White Blood Count 10.2 K/mm3 (4.4-11.0)
[2021-02-23 07:32] LABS: Anion Gap 5 (5-15); BUN 21 mg/dL (7-18); Calcium,Total 8.5 mg/dL (8.5-10.1); Chloride 108 mmol/L (98-107); Creatinine, Serum 0.87 mg/dL (0.70-1.30); EST Glomerular Filtration Rate 90 mL/min (>60); Est Glom Filt Rate - Afr Amer 109 mL/min (>60); Estimated Creatinine Clearance 70.98 ml/min; Glucose 90 mg/dL (74-106); Potassium 3.9 mmol/L (3.5-5.1); Sodium Level 139 mmol/L (136-145)
[2021-02-23] MEDS: Losartan Potassium 50 MG Tablet PO (09:36)
[2021-02-23 10:00] VITALS: BP 115/65; PULSE 77; RESP 18; TEMP 36.7; O2SAT 96
[2021-02-23] MEDS: Dofetilide 250 MCG Capsule PO (10:24)
[2021-02-23 10:28] VITALS: BP 115/65; PULSE 77
--- NOTE | 2021-02-23 11:35 | PCM.DC.SUM ---
Providers Date of Admission: 02/20/21 Primary Care Physician: Dr. Víctor Pak MD Consultations 02/20/21 20:17 Consult: General Surgery Routine Consulting Provider: Eddie Thomas Reason for Consult: Per-rectal abscess EMERGENT Consult: No MD Notified: Yes Date Notified: 02/20/21 Time Notified: 19:16 Method of Notification: Page-saw pt in ED Reason For Visit: SADIE-RECTAL ABSCESS Diagnosis Discharge Diagnosis (1) Sadie-rectal abscess: Status: Acute Code(s): K61.1 - Rectal abscess Medications at Discharge Home Medications atorvastatin 20 mg PO QHS 08/11/14 apixaban 5 mg tablet 5 mg PO BID 01/27/20 dofetilide 250 mcg PO BID 02/20/21 irbesartan 150 mg PO QHS 02/20/21 metoprolol succinate 25 mg PO DAILY 02/20/21 amoxicillin-pot clavulanate [Augmentin] 1 tab PO BID #20 tab 02/23/21 Hospital Course Operations - (incision and drainage of sadie rectal abscess.) Summary of Care Provided Minutes Spent on Discharge: 45 Hospital Course: Patient is a 75-year-old male with a past medical history as outlined which includes A. fib s/p ablation and cardioversion. He was admitted through the ED on 02/20/2021 with a complaint of fever and chills and said he had been tachycardic at home and his temperature had peaked at home at 102 Fahrenheit. He also had listlessness and weakness and had noted some blood from his rectum. He denied any constipation or diarrhea. Symptoms have been going on for about 2 days prior to him coming into the hospital. WBC was 12.[address] of the pelvis showed an irregular peripherally enhancing low-density collection posterior to and on the left of the rectum compatible with a perirectal abscess. He was started on IV Zosyn and kept n.p.o. His Eliquis was held and general surgery was consulted. Patient had I&D with insertion of drain on 02/21/2021. He tolerated procedure well and his white cell count trended downwards and patient felt much better. Wound culture grew beta Streptococcus and blood cultures were negative after 48 hours. Patient was discharged on p.o. Augmentin for 10 days and is to follow-up with general surgery on outpatient basis and also with his PCP. Patient seen and examined prior to discharge. He had no complaints and felt well. Review of systems otherwise negative. Labs and vitals reviewed. Medication reviewed and reconciled. Physical Exam Const alert, oriented x3 and no apparent distress General Appearance: cooperative, comfortable and well kempt Exam Limitations: no limitations HEENT normocephalic, head/scalp atraumatic, moist oral mucous membranes and oropharynx normal Eyes PERRL, EOMs intact bilaterally and conjunctivae normal Neck no lymphadenopathy Resp normal respiratory effort, no retractions, no use of accessory muscles and clear to auscultation bilaterally Cardio regular rate, regular rhythm, S1 normal heart sound, S2 normal heart sound and no murmurs GI normal to inspection, nondistended, normoactive bowel sounds, soft to palpation, non-tender, non-distended and hepatosplenomegaly Extremity normal to inspection, full ROM and no clubbing, cyanosis or edema Skin no rashes or lesions noted Skin Narrative: intact dressing over surgical site in lower buttock area. Neuro oriented x3, CN's II-XII intact bilaterally and moves all extremities Sensorium / Orientation: awake and alert Psych affect normal Weight / BMI Weight Weight: 224 lb Body Mass Index (BMI) 34.0 ABG / Lab / Microbiology Data Result Diagrams: 02/23/21 06:06 02/23/21 06:06 Laboratory: Laboratory Results - last 24 hr 02/23/21 06:06: WBC 10.2, RBC 4.39 L, Hgb 13.5, Hct 40.4, MCV 92.0, MCH 30.8, MCHC 33.4, RDW Std Deviation 43.1, RDW Coeff of Camilla 12.8, Plt Count 235, MPV 9.7, Immature Gran % (Auto) 0.500, Neut % (Auto) 73.4 H, Lymph % (Auto) 19.5, Murray % (Auto) 5.8, Eos % (Auto) 0.4, Baso % (Auto) 0.4, Absolute Neuts (auto) 7.5, Absolute Lymphs (auto) 1.99, Nucleated RBC % 0 02/23/21 06:06: Sodium 139, Potassium 3.9, Chloride 108 H, Carbon Dioxide 26.0, Anion Gap 5, BUN 21 H, Creatinine 0.87, Estim Creat Clear Calc 70.98, Est GFR (MDRD) Af Amer 109, Est GFR (MDRD) Non-Af 90, BUN/Creatinine Ratio 24.0 H, Glucose 90, Calcium 8.5 Microbiology: Microbiology 02/20/21 16:30 Blood Culture (Wb) - Left Hand Blood Culture - Preliminary No growth in 48 hours. 02/20/21 16:20 Blood Culture (Wb) - Left Hand Blood Culture - Preliminary No growth in 48 hours. 02/21/21 Unknown Tissue - Aerobic & Anaerobic Swabs Gram Stain - Final 02/21/21 Unknown Tissue - Aerobic & Anaerobic Swabs Wound Culture - Preliminary Beta streptococcus Gram positive organism 02/20/21 14:55 Nasal Secretion SARS-CoV-2 Antigen (Rapid) - Final D/C Instructions Discharge Diet: Low fat / Low cholesterol Discharge Activity: Return to Normal Activity Weight Bearing Status: Weight bearing as tolerated Call your doctor if your incision/area has: Continuous Slow Oozing, Sudden Increased Bleeding, Increased Pain/ Swelling, Foul Smelling Discharge and Swelling at the incision site Call your doctor if you observe: Fever of 101 or Higher, Shortness of breath, Swelling in the ankles, Increased palpitations (irregular heartbeat) and Uncontrolled pain Meaningful Use Info Meaningful Use Diagnoses (Choose all that apply): None applicable Discharge Plan Admission Admit Date/Time: 02/20/21 19:11 Primary Reason for Your Visit: sadie rectal abscess Attending Provider: Didi Delgado Primary Care Provider: Víctor Pak Consulting Providers: Eddie Thomas Instructions Patient Instructions: Abscess Drainage Discharge Orders/Prescriptions Prescriptions: New amoxicillin-pot clavulanate [Augmentin] 875-125 mg tablet 1 tab PO BID Qty: 20 RF: 0 Continued Eliquis 5 mg tablet 5 mg PO BID RF: 0 atorvastatin 20 MG tablet 20 mg PO QHS RF: 0 dofetilide 250 mcg capsule 250 mcg PO BID RF: 0 irbesartan 150 mg tablet 150 mg PO QHS RF: 0 metoprolol succinate 25 mg tablet extended release 24 hr 25 mg PO DAILY RF: 0 Referrals / Follow Up: Eddie Thomas MD [STAFF PHYSICIAN] - In 1 Week Víctor Pak MD [Primary Care Provider] - Within 2 Weeks Disposition Disposition (needs filled in before D/C Order can be placed): Home, Self Care Charges/Coding Visit Charges Inpatient E&M: 79753 Disch Hosp
[2021-02-23 12:22] VITALS: BP 122/62; PULSE 58; RESP 16; TEMP 36.7; O2SAT 96
--- NOTE | 2021-02-23 12:26 | NURSING ---
Pt very appreciative of care. Son picking up patient for discharge. 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
== END 2021-02-23 12:30 | disposition home or self-care (01) | DRG 330 ==
LOC: ED 16:32 → MS3 19:59 → MS2 02-22 10:06
PROVIDERS: Surgery; Admitting Provider Hospitalist; Emergency Provider Emergency Medicine; PCP Family Medicine; Visit Provider Student in an Organized Health Care Education/Training Program
PROC: 0D9P00Z Drainage of Rectum with Drainage Device, Open Approach (ICD-10-PCS; CPT 46040; principal; 2021-02-21 14:00)
DX: K61.31 Horseshoe abscess (principal); I48.92 Unspecified atrial flutter; I48.91 Unspecified atrial fibrillation; B95.4 Other streptococcus as the cause of diseases classified elsewhere; I10 Essential (primary) hypertension; E78.5 Hyperlipidemia, unspecified; Z79.01 Long term (current) use of anticoagulants; Z79.899 Other long term (current) drug therapy
CPT/HCPCS: 36415; 72193; 80048; 81001; 83605; 85025; 87040; 87070; 87075; 87186; 87205; 87426; 93005; 97802; 99284; J7040; J7050; J7120; Q9967; A4216; J2405; Q9968

== ENCOUNTER 2021-06-06 09:18 | Outpatient (CLI) | payer MEDICARE, OTHER, SELFPAY ==
[2021-06-06 10:04] LABS: Absolute Lymphocyte Count 2.38 X10^3/uL (0.83-4.51); Absolute Neutrophil Count 3.8 X10^3/uL (2.0-7.7); Basophil# 0.05 X10^3/uL; Basophil% 0.7 % (0-1); Eosinophil# 0.13 X10^3/uL; Eosinophils% 1.9 % (0-5); Hemoglobin 16.5 g/dL (13.0-16.5); Lymphocyte # 2.38 X10^3/ul (0.83-4.51); Lymphocyte % 35.2 % (19-41); Mean Corp Hgb Conc 34.4 g/dL (32-36); Mean Corpuscular Hgb 32.5 pg (27.0-32.0); Mean Corpuscular Volume 94.7 fL (80-94); Mean Platelet Vol. 9.9 fl (6.2-12.0); Monocyte# 0.42 X10^3/uL; Monocyte% 6.2 % (0-10); NRBC Flagged by Analyzer 0 % (0-5); Neutrophil # 3.77 X10^3/uL (2.7-7.7); Neutrophil % 55.7 % (47-70); Platelet Count 192 K/mm3 (150-450); RBC Distribution Width CV 13.3 % (11.6-14.6); RBC Distribution Width SD 46.4 fl (35.1-43.9); Red Blood Count 5.07 M/mm3 (4.6-6.2); White Blood Count 6.8 K/mm3 (4.4-11.0)
[2021-06-06 10:54] LABS: ALB/GLOB Ratio 0.8 RATIO (0.9-2.4); AST(SGOT) 17 U/L (15-37); Alanine Aminotransfer ALT/SGPT 23 U/L (16-61); Albumin, Serum 3.6 g/dL (3.2-5.0); Alkaline Phosphatase 110 U/L (45-117); Anion Gap 5 (5-15); BUN 15 mg/dL (7-18); BUN/Creat Ratio 15.1 RATIO (10-20); Calcium,Total 9.3 mg/dL (8.5-10.1); Chloride 106 mmol/L (98-107); Cholesterol 160 mg/dL (200); EST Glomerular Filtration Rate 78 mL/min (>60); Est Glom Filt Rate - Afr Amer 94 mL/min (>60); Globulin 4.5 g/dL (2.2-4.2); Glucose 85 mg/dL (74-106); High Density Lipoprotein 58 mg/dL; Protein, Total 8.1 g/dL (6.4-8.2); Sodium Level 139 mmol/L (136-145); Triglycerides 93 mg/dL; Very Low Density Lipoprotein 19 mg/dL (5-40)
== END 2021-06-06 23:59 | disposition home or self-care (01) ==
LOC: MFPLAB 09:22
PROVIDERS: PCP Family Medicine; Visit Provider Family Medicine
DX: Z00.00 Encounter for general adult medical examination without abnormal findings (principal); I48.91 Unspecified atrial fibrillation; E66.9 Obesity, unspecified; Z68.37 Body mass index [BMI] 37.0-37.9, adult; G47.33 Obstructive sleep apnea (adult) (pediatric)
CPT/HCPCS: 36415; 80053; 80061; 85025

== ENCOUNTER → 2022-09-21 | Outpatient (CLI) | payer MEDICARE, OTHER, SELFPAY ==
[2022-09-21 08:34] LABS: Microalbumin,Random Urine 8.2 mg/L (NO RANGE EST.); Microalbumin:Creatinine Ratio 3.5 mg/g CRE (<30 mg/g CRE)
[2022-09-21 08:48] LABS: AST(SGOT) 21 U/L (15-37); Alanine Aminotransfer ALT/SGPT 26 U/L (16-61); Albumin, Serum 3.2 g/dL (3.2-5.0); Alkaline Phosphatase 91 U/L (45-117); Bilirubin, Direct 0.24 mg/dL (0.00-0.30); Cholesterol 154 mg/dL (200); Globulin 4.1 g/dL (2.2-4.2); High Density Lipoprotein 60 mg/dL; PSA,Total - Annual Screen 1.14 ng/mL (0.00-4.00); Protein, Total 7.3 g/dL (6.4-8.2); Triglycerides 96 mg/dL; Very Low Density Lipoprotein 19 mg/dL (5-40)
== END | disposition home or self-care (01) ==
LOC: LAB 06:52
PROVIDERS: PCP Family Medicine; Referring Provider Family Medicine; Visit Provider Family Medicine
DX: Z12.5 Encounter for screening for malignant neoplasm of prostate (principal); I48.91 Unspecified atrial fibrillation; I10 Essential (primary) hypertension; E78.00 Pure hypercholesterolemia, unspecified; F52.21 Male erectile disorder
CPT/HCPCS: 36415; 80061; 80076; 82043; 82570; 84153; G0103

== ENCOUNTER 2022-10-05 07:26 | Outpatient (RCR) | payer MEDICARE, OTHER, SELFPAY ==
--- NOTE | 2022-10-25 12:38 | HP.PTEVAL_ITS ---
Patient's Visit Information Visit Information Visit Information: LOLITA REED is a 76 year old M referred to Physical Therapy by Dr. Víctor Pak MD with a diagnosis of osteoarthritis, increased weight gain, and sarcoporesis. Date of Evaluation: 10/05/22 Physical Therapist: Cody Jasso DPT Visit Plan Frequency: 1x/Week Duration: 1 Week Plan: I educated patient on additional exercises in the gym, including B shoulder ER/IR, core stability exercises, hip extension machine and squatting. I also talked to him about adjusting wt. to allow for a greater ROM and full contraction of his muscles. Pt. able to demonstrate back to me. Pt. is able to approach me and ask questions about given exercises. Pt. reports feeling comfortable with exercises. Pt. will not be seen in formal PT going forward. Pt. DC back to physician with his adjusted gym program. Subjective Subjective: Pt. is here today for his initial evaluation with diagnosis of oste oarthritis, increased weight gain, and sarcoporesis. Pt. reports overall doing well, but had a physical with his physician whom wanted him to have some instruction on strengthening the small muscles of his UB and LB. Pt. reports overall doing well. He works out at gym x2 per week and swims on off days. Pt. reports no pain currently. I was talking with him and he reports doing some his exercises with heavier wt's and reducing his ROM. Pt. desires to continue with his strengthening and progress his gym program Objective Objective: POSTURE: Pt. has slight FH, slight rounded shoulders, slight anterior pelvic tilt. Normal wt. shifting. PALPATION: No issues with palaption of BUEs and BLEs. NEURO: normal throughout. ROM: Pt. has overall decent ROM, tight B HS and tightness of lumbar spine into flexion min loss. and min loss with extension. Normal B shoulder ROM noted. MMT: B shoulder: 5/5 throughout; B LEs 5/5 throughout; except hip ext 4+/5, hip ER/IR 4/5, and shoulder ER/IR 4+/5. Core strength 4/5. GAIT: normal throughout. STAIRS: normal without use of HR. Balance/Special Test Scores Lower Extremity Functional Score: 72 Goals Goal 1:: STG: Pt. to be educated in gym program to target his small postural musculature. Goal Time Frame: 1 Week Rehabilitation Potential Physical Therapy Diagnosis: Pt. has signs and symptoms consistent with osteoarthritis, increased weight gain, and sarcoporesis. Pt. has some weakness of the smaller, stability musculature of BUEs and BLEs. I would recommend that we advise his exercise routine to add in exercises to target his weaker areas. Rehabilitation Potential: Excellent Anticipated Interventions Patient/Client Instruction: Educate patient on: Condition, Plan of Care, Risk Factors and Benefits of Fitness Program For the Purpose of:: To improve health and function, To foster healthy habits, To improve decision making, To facilitate caregiver knowledge, To improve self management, To prevent re-injury and To improve ability to perform tasks related to life management Text: Thank you for the opportunity to evaluate your patient. For Medicare and Medicare HMO plans, please review the plan of care and approve it. It will need to be FAXED BACK to us at [phone] for Medicare purposes. For Medicare only, by signing this I certify the plan of care. Please let me know if there are questions or concerns regarding this plan of care. Physician Signature: Date:
--- NOTE | 2022-10-25 12:43 | HP.PT.NRP ---
Patient Information Patient Information: LOLITA REED was seen in my office for initial evaluation on 10/05/22. The following Plan of Care was established for this patient: POC Established Initial Frequency: 1x/Week Initial Duration: 1 Week Anticipated Interventions Patient/Client Instruction: Educate patient on: Condition, Plan of Care, Risk Factors and Benefits of Fitness Program For the Purpose of:: To improve health and function, To foster healthy habits, To improve decision making, To facilitate caregiver knowledge, To improve self management, To prevent re-injury and To improve ability to perform tasks related to life management Last Seen Last Seen: This patient was last seen in our office 10/05/22. Pertinent comments regarding their Physical therapy will appear below: Pt. was seen for his initial evaluation and his gym program was adjusted. Pt. reports he is doing well with his program. Pt. to be DC from PT at this point in time. At this point I will be discontinuing this patient from physical therapy. I would be happy to see this patient again in the future if found appropriate by the physician. Thank you! LARRY VillarrealT Balance/Gait/Functional tests Balance/Special Test Scores Lower Extremity Functional Score: 72
== END 2022-10-05 19:00 | disposition home or self-care (01) ==
LOC: PT 07:26
PROVIDERS: PCP Family Medicine; Referring Provider Family Medicine; Visit Provider Family Medicine
DX: M19.90 Unspecified osteoarthritis, unspecified site (principal); R63.5 Abnormal weight gain; M62.81 Muscle weakness (generalized)
CPT/HCPCS: 97161

== ENCOUNTER 2023-01-20 08:13 | Emergency (ER) | payer MEDICARE, OTHER, SELFPAY ==
[2023-01-20 08:14] VITALS: BP 143/116; PULSE 80; RESP 14; TEMP 36.8; O2SAT 95; BMI 38.9
--- NOTE | 2023-01-20 08:28 | RAD_ITS ---
STUDY: X-RAY CHEST REASON FOR EXAM: Male, 77 years old. Cough TECHNIQUE: PA and lateral views of the chest. COMPARISON: 10/24/2010 FINDINGS: The lungs are clear and expanded. There is no demonstrated pleural abnormality. Normal size heart. Normal mediastinum and yakov. Normal visualized pulmonary arteries. Normal visualized aortic arch and descending thoracic aorta. Normal visualized thoracic spine. Normal visualized ribs, clavicles, and shoulders. There is no demonstrated abnormality of the visualized soft tissue structures of the upper abdomen. RAD/Chest PA and Lateral IMPRESSION: Normal x-ray examination of the chest. Electronically Signed: Delon Marx MD at 8:56 EST ,
--- NOTE | 2023-01-20 08:28 | ED.VIS.DYS ---
HPI History of Present Illness Chief Complaint: Cold Sx Informant: patient and spouse/S.O. Narrative Narrative: 77-year-old male presenting to the emergency room with chief complaint of I need a chest x-ray. Patient states that he fell ill on symptoms have included headache slight sore throat cough with sputum production diarrhea myalgias fatigue. States he went to an urgent care yesterday was tested for influenza and COVID which were negative. He called his doctor's office and spoke with the nurse. They suggested he needs a chest x-ray. He states that he does not have any new symptoms today compared to yesterday. He denies shortness of breath or chest pain. Last dose of Tylenol was this morning. He is on apixaban and Tikosyn for atrial fibrillation. He denies palpitations or symptoms of A-fib. [facility] Medical History A-fib Acute appendicitis with localized peritonitis Anticoagulant long-term use Atrial flutter Horseshoe abscess HTN (hypertension) Hyperlipidemia Sadie-rectal abscess Home Medications atorvastatin 20 mg tablet 20 mg PO QHS cholesterol 08/11/14 [History Last Taken 02/19/21 21:00 20 mg] apixaban 5 mg tablet (Eliquis) 5 mg PO BID blood thinner 01/27/20 [History Last Taken 02/20/21 09:00 5 mg] dofetilide 250 mcg capsule 250 mcg PO BID heart 02/20/21 [History Last Taken 02/20/21 09:00 250 mcg] irbesartan 150 mg tablet 150 mg PO QHS heart 02/20/21 [History Last Taken 02/19/21 21:00 150 mg] metoprolol succinate 25 mg tablet,extended release 24 hr 12.5 mg PO DAILY heart 11/08/21 [History Last Taken Unknown] Allergy/AdvReac Type Severity Reaction Status Date / Time flecainide AdvReac Other Verified 01/20/23 08:14 ramipril [From Altace] AdvReac Other Verified 01/20/23 08:14 sotalol AdvReac Other Verified 01/20/23 08:14 Surgical History H/O knee surgery S/P laparoscopic appendectomy (~10/02/17) Social History household members: spouse Smoking Status: Never smoker alcohol intake: never substance use type: does not use ROS ROS ED Constitutional Constitutional ED: Reports chills and fever(s); Denies weight loss Eyes Eyes: Denies change in vision or diplopia ENT ENT ED: Reports sore throat; Denies ear pain or rhinorrhea Cardiovascular Cardiovascular: Denies chest pain, orthopnea, palpitations or racing heartbeat Respiratory/Chest Respiratory/Chest: Reports cough; Denies dyspnea, dyspnea on exertion or orthopnea Gastrointestinal Gastrointestinal: Reports diarrhea; Denies abdominal pain, nausea or vomiting Genitourinary Genitourinary ED: Denies dysuria, hematuria or urinary frequency Musculoskeletal Musculoskeletal: Reports myalgias; Denies arthralgias or back pain Integumentary Denies abscess or rash Neurologic Neurologic: Reports headache(s); Denies weakness Psychiatric Psychiatric: Denies anxiety, depression, suicidal ideation or suicidal thoughts Endocrine Endocrinology: Denies polydipsia, polyphagia or polyuria Allergic/Immunologic Allergic/Immunologic ED: Denies mouth swelling, tongue swelling or urticaria EXAM Physical Exam Const Vital Signs: 01/20/23 08:14 01/20/23 08:21 Temperature 98.2 F Temperature Source Temporal Pulse Rate 80 Respiratory Rate 14 Respiratory Effort Normal Non-Labored Respiratory Pattern Normal Blood Pressure 143/116 H Blood Pressure Mean 125 Pulse Ox 95 Oxygen Delivery Method Room Air Positive well nourished and well developed General Appearance ED: well developed HEENT Reports normocephalic, head/scalp atraumatic and moist mucous membranes Eyes PERRL and EOMs intact bilaterally Neck no lymphadenopathy, supple and no JVD Resp normal respiratory effort and clear to auscultation bilaterally Cardio regular rate, regular rhythm and no murmurs GI normal to inspection, nondistended, normoactive bowel sounds and non-tender Palpation: soft Back/Spine no CVA tenderness and normal ROM Extremity normal to inspection General Extremety ED: Negative for edema General Extremity: Negative for edema Neuro oriented x3 and CN's II-XII intact bilaterally Sensorium / Orientation: alert Motor Exam: strength 5/5 throughout Psych mental status grossly normal Mood & Affect: Negative for depressed or tearful Skin no rashes or lesions noted and no wounds MDM MDM MDM Narrative Medical decision making narrative: My independent interpretation chest x-ray is no acute process. Specifically no obvious consolidation/infiltrate seen. Patient clinically appears well. He is not tachycardic hypoxic or dyspneic. His lung sounds are clear. Clinically I think the patient has a viral syndrome. Would recommend rest fluids Tylenol for fever control. Return if worsening or concerns. Radiography Diagnostic Testing: Clinical Impression(s) from Imaging Studies Chest X-Ray 01/20/23 08:28 IMPRESSION: Normal x-ray examination of the chest. Electronically Signed: Delon Marx MD at 8:56 EST , Discharge Plan Triage Chief Complaint: Cold Sx ED Provider: Eddie Duran Dx/Rx/DC Orders Clinical Impression: Acute viral syndrome, Cough Instructions: ED Viral Syndrome (Adult) Prescriptions: No Action Eliquis 5 mg tablet 5 mg PO BID atorvastatin 20 MG tablet 20 mg PO QHS dofetilide 250 mcg capsule 250 mcg PO BID Patient Comments: TAKE 1 CAPSULE TWICE DAILY irbesartan 150 mg tablet 150 mg PO QHS Patient Comments: TAKE 1 TABLET BY MOUTH DAILY at supper time metoprolol succinate 25 mg tablet extended release 24 hr 12.5 mg PO DAILY Patient Comments: Take 0.5 tablets by mouth once daily. Primary Care Provider: Víctor Pak Referrals: Víctor Pak MD [Primary Care Provider] - As Needed Disposition Disposition: Home, Self Care
[2023-01-20 10:05] VITALS: BP 138/79; PULSE 61; RESP 15; O2SAT 99
== END 2023-01-20 10:08 | disposition home or self-care (01) ==
PROVIDERS: Emergency Provider Emergency Medicine; PCP Family Medicine; Visit Provider Emergency Medicine
DX: B34.9 Viral infection, unspecified (principal); I48.91 Unspecified atrial fibrillation; R05.9 Cough, unspecified; Z79.01 Long term (current) use of anticoagulants
CPT/HCPCS: 71046; 99282

== ENCOUNTER → 2023-06-20 | Outpatient (CLI) | payer MEDICARE, OTHER, SELFPAY ==
[2023-06-20 10:27] LABS: Absolute Lymphocyte Count 1.68 X10^3/uL (0.83-4.51); Absolute Neutrophil Count 3.7 X10^3/uL (2.0-7.7); Basophil# 0.06 X10^3/uL; Eosinophil# 0.24 X10^3/uL; Eosinophils% 3.9 % (0-5); Hematocrit 43.9 % (40-54); Hemoglobin 14.9 g/dL (13.0-16.5); Lymphocyte # 1.68 X10^3/ul (0.83-4.51); Lymphocyte % 27.5 % (19-41); Mean Corp Hgb Conc 33.9 g/dL (32-36); Mean Corpuscular Hgb 31.7 pg (27.0-32.0); Mean Corpuscular Volume 93.4 fL (80-94); Mean Platelet Vol. 10.3 fl (6.2-12.0); Monocyte# 0.37 X10^3/uL; Monocyte% 6.1 % (0-10); NRBC Flagged by Analyzer 0 % (0-5); Neutrophil # 3.73 X10^3/uL (2.7-7.7); Neutrophil % 61.2 % (47-70); Platelet Count 173 K/mm3 (150-450); RBC Distribution Width CV 12.6 % (11.6-14.6); RBC Distribution Width SD 43.2 fl (35.1-43.9); White Blood Count 6.1 K/mm3 (4.4-11.0)
[2023-06-20 10:30] LABS: Microalbumin:Creatinine Ratio 3.9 mg/g CRE (<30 mg/g CRE)
[2023-06-20 10:43] LABS: ALB/GLOB Ratio 0.8 RATIO (0.9-2.4); AST(SGOT) 27 U/L (15-37); Alanine Aminotransfer ALT/SGPT 30 U/L (16-61); Albumin, Serum 3.3 g/dL (3.2-5.0); Alkaline Phosphatase 128 U/L (45-117); Anion Gap 3 (5-15); BUN 19 mg/dL (7-18); BUN/Creat Ratio 17.8 RATIO (10-20); Calcium,Total 8.9 mg/dL (8.5-10.1); Chloride 103 mmol/L (98-107); Cholesterol 145 mg/dL (200); Creatinine, Serum 1.07 mg/dL (0.70-1.30); EST Glomerular Filtration Rate 71 mL/min (>60); Est Glom Filt Rate - Afr Amer 86 mL/min (>60); Globulin 4.1 g/dL (2.2-4.2); Glucose 96 mg/dL (74-106); High Density Lipoprotein 56 mg/dL; Potassium 4.1 mmol/L (3.5-5.1); Protein, Total 7.4 g/dL (6.4-8.2); Sodium Level 136 mmol/L (136-145); Thyroid Stim Hormone (TSH) 1.47 uIU/mL (0.358-3.74); Triglycerides 96 mg/dL; Very Low Density Lipoprotein 19 mg/dL (5-40)
== END | disposition home or self-care (01) ==
LOC: MTLAB 08:19
PROVIDERS: PCP Family Medicine; Referring Provider Family Medicine; Visit Provider Family Medicine
DX: I10 Essential (primary) hypertension (principal); I49.1 Atrial premature depolarization
CPT/HCPCS: 36415; 80053; 80061; 82043; 82570; 84443; 85025

== ENCOUNTER → 2024-05-06 | Outpatient (CLI) | payer MEDICARE, OTHER, SELFPAY ==
--- NOTE | 2024-05-06 10:42 | RAD_ITS ---
PROCEDURE: Pelvis and bilateral hip radiographs, five views REASON FOR EXAM: Bilateral hip pain, greatest on the left TECHNIQUE: Five views of the pelvis and bilateral hips were obtained. COMPARISON: None. FINDINGS: Five views of the pelvis and bilateral hips were obtained. Bones are osteopenic. Moderate degenerative changes lower lumbar spine. SI joints are intact. No displaced pelvic or proximal femur fracture. Mild degenerative changes in the hip joints, greatest on the left. No acute fracture or dislocation of either hip. RAD/Hips B/L min 2 views w/ Pelvis IMPRESSION: Osteopenia. No acute bony abnormality of the pelvis/bilateral hips. Mild degenerative changes in the hip joints, greatest on the left. Reading Location: [facility]
== END | disposition home or self-care (01) ==
LOC: RAD 10:29
PROVIDERS: PCP Family Medicine; Referring Provider Family Medicine; Visit Provider Family Medicine
DX: M25.551 Pain in right hip (principal); M25.552 Pain in left hip
CPT/HCPCS: 73521

== ENCOUNTER → 2024-06-03 | Outpatient (CLI) | payer MEDICARE, OTHER, SELFPAY ==
--- NOTE | 2024-06-03 08:55 | BD_ITS ---
EXAM: DEXA examination of lumbar spine and both hips. CLINICAL HISTORY: 70-year-old male. History of adult fracture. COMPARISON: None. TECHNIQUE: DEXA examination of lumbar spine and both hips. FINDINGS: T-SCORES and BMD Lumbar spine: Bone mineral density of the lumbar spine measures (1.349) g/cm2; T-score measures 2.3. Z-score measures 3.5. Left femoral neck: Bone mineral density measures (0.805) g/cm2; T-score measures -0.9 and Z-score measures 0.5. Left total hip: Bone mineral density measures (1.008) g/cm2; T-score measures -0.9. Z-score measures 0.5. Right femoral neck: Bone mineral density measures (0.749) g/cm2; T-score measures -1.3. Z-score measures 0.1. Right total hip: Bone mineral density measures (0.954) g/cm2; T-score measures -0.5. Z-score measures 0.5. Fracture Risk Calculation 10 Year Probability of Fracture: Major Osteoporotic Fracture: 8.9% Hip Fracture: 2.4% BD/Dexa Bone Density Study IMPRESSION: Patient demonstrates osteopenia. Reading Location: [id number]
== END | disposition home or self-care (01) ==
LOC: OPBD 08:46
PROVIDERS: PCP Family Medicine; Referring Provider Family Medicine; Visit Provider Family Medicine
DX: M85.88 Other specified disorders of bone density and structure, other site (principal)
CPT/HCPCS: 77080

== ENCOUNTER → 2024-09-29 | Outpatient (CLI) | payer MEDICARE, OTHER, SELFPAY ==
[2024-09-29 12:12] LABS: PSA,Total - Annual Screen 1.41 ng/mL (0.02-4.00)
== END | disposition home or self-care (01) ==
LOC: MTLAB 09:07
PROVIDERS: PCP Family Medicine; Referring Provider Family Medicine; Visit Provider Family Medicine
DX: Z13.1 Encounter for screening for diabetes mellitus (principal); Z12.5 Encounter for screening for malignant neoplasm of prostate
CPT/HCPCS: 36415; 83036; 84153; G0103